=== PATIENT | male | born 1940 | race Caucasian/White ===

== ENCOUNTER → 2019-12-07 15:50 | Outpatient (BNVA) | payer MEDICARE, SELFPAY | PROVIDERS: Family Provider Family Medicine; PCP Family Medicine; Visit Provider Internal Medicine Rheumatology | DX: M06.09 Rheumatoid arthritis without rheumatoid factor, multiple sites (principal); Z11.59 Encounter for screening for other viral diseases; Z79.899 Other long term (current) drug therapy; Z11.1 Encounter for screening for respiratory tuberculosis; M79.89 Other specified soft tissue disorders; Z96.651 Presence of right artificial knee joint; Z72.89 Other problems related to lifestyle | CPT/HCPCS: 36415; 80076; 82565; 85025; 85651; 86140; 86480; 86704; 86803; 87340; 99214 ==

== ENCOUNTER → 2019-12-07 17:26 | Outpatient (BNVA) | payer MEDICARE, SELFPAY | PROVIDERS: Family Provider Family Medicine; PCP Family Medicine; Visit Provider Internal Medicine Rheumatology | DX: M06.9 Rheumatoid arthritis, unspecified (principal); Z79.899 Other long term (current) drug therapy; M79.89 Other specified soft tissue disorders | CPT/HCPCS: 85025 ==

== ENCOUNTER 2019-12-16 14:07 | Outpatient (CLI) | payer MEDICARE, SELFPAY ==
--- NOTE | 2019-12-16 13:30 | USCV_ITS ---
Ivan Ortiz Age: 79 Gender: M : 1940 Exam Date: 12/16/2019 14:40 Ordering Phys: Bang Dobbins MD Technologist: Kimberley Banerjee Exam Location: [facility] [place] Indication: PITTING EDEMA. R/O DVT. HISTORY: Lower extremity edema. PROCEDURES: Examined were the right greater saphenous, common femoral, femoral, profunda, popliteal, posterior tibial veins, and peroneal trunk.. FINDINGS: All veins examined appear free of thrombus. No filling defects on color Doppler flow analysis. Vein flow and caliber vary with respiration. Increase in venous flow with augmentation. All veins appear compressible.. CONCLUSIONS No evidence of right lower extremity DVT. Rangel Coleman MD (Electronically Signed) Final Date: 16 December 2019 15:55 S
== END 2019-12-16 14:08 | disposition home or self-care (01) ==
LOC: RAD 14:12
PROVIDERS: Family Provider Family Medicine; PCP Family Medicine; Visit Provider Internal Medicine Rheumatology
DX: M79.89 Other specified soft tissue disorders (principal); R60.9 Edema, unspecified
CPT/HCPCS: 93971

== ENCOUNTER → 2020-04-04 12:05 | Outpatient (BNVA) | payer MEDICARE, SELFPAY | PROVIDERS: Family Provider Family Medicine; PCP Family Medicine; Visit Provider Internal Medicine Rheumatology | DX: M06.09 Rheumatoid arthritis without rheumatoid factor, multiple sites (principal); Z79.899 Other long term (current) drug therapy; Z96.651 Presence of right artificial knee joint | CPT/HCPCS: 36415; 80061; 80076; 82565; 85025; 85651; 86140; 99214 ==

== ENCOUNTER 2020-05-10 03:50 | Observation (INO) | payer MEDICARE, SELFPAY ==
[2020-05-10] VITALS (10 sets, daily range): BP systolic 105–137; BP diastolic 53–75; PULSE 76–109; RESP 16–21; TEMP 36.6–37.2; O2SAT 92–95; BMI 29.0
--- NOTE | 2020-05-10 03:54 | XR_ITS ---
WS: [id number] PORTABLE CHEST HISTORY: Transient chest pain with nausea. COMPARISON: None available. Lung volumes are decreased. No pneumonia. Normal vasculature. No pleural effusion or pneumothorax. Cardiac size: Normal. Mediastinum/Aorta: Mild atherosclerosis aorta. Mild degenerative arthritic changes at the glenohumeral joints. XR/XR chest 1V portable [id number] IMPRESSION: Mild atherosclerosis aorta. No acute cardiopulmonary disease.
--- NOTE | 2020-05-10 03:54 | ECG_ITS ---
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 Measurements Intervals [place] Rate: 105 P: 40 [place]: 171 QRS: 166 QRSD: 131 T: 22 QT: 323 QTc: 428 Interpretive Statements SINUS TACHYCARDIA POSSIBLE LEFT ATRIAL ENLARGEMENT [-0.1mV P WAVE IN V1/V2] INDETERMINATE AXIS RIGHT BUNDLE BRANCH BLOCK [120+ ms QRS DURATION, UPRIGHT V1, 40+ ms S IN I/aVL/V4/V5/V6] LEFT POSTERIOR FASCICULAR BLOCK [QRS AXIS > 109, INFERIOR Q] No previous ECG available for comparison Electronically Signed On 05-10-2020 17:06:53 CDT by Renny Delarosa M.D. [email or web address] [id number]
--- NOTE | 2020-05-10 03:55 | W.ED.CHESTPA ---
HPI - Chest Pain General: Chief Complaint: Chest Pain Stated Complaint: CP Time Seen by Provider: 05/10/20 03:51 Source: patient and EMS Mode of arrival: EMS Limitations: no limitations History of Present Illness: HPI narrative: 79-year-old male who states he started having chest pain couple hours ago. Patient brought in by EMS and they state when they arrived his pain was an 8 out of 10 and is currently pain-free after aspirin and nitro. Patient states he had nausea with the pain as well. He denies any shortness of breath. He denies any vomiting. Again patient is pain-free at this time. complaint: chest pain Onset (ago): hour(s) Timing of current episode: episodic Pain location: substernal Pain radiation: none Severity: moderate Quality: tightness Relieving factors: nothing Exacerbating factors: nothing Associated symptoms: Deny abdominal pain, dyspnea, fever(s), nausea or vomiting Review of Systems Const: Denies: fever(s), chills, body aches or change in appetite Eyes: Denies: blurry vision or eye discomfort ENMT: Denies: throat pain or dental pain Card: Reports: chest pain Resp: Denies: dyspnea GI: Denies: abdominal pain, nausea, vomiting or diarrhea : Denies: dysuria Musc: Denies: neck pain or back pain Skin/Breast: Denies: rash Neuro: Denies: headache(s) Psych: Denies: depression Hammad/Lymph: Denies: easy bruising All/Imm: Denies: urticaria PFSH ED PFSH: Medical History Abnormal PSA Basal cell carcinoma REMOVED FROM NOSE AND FOREHEAD BPH NOS w ur obs/LUTS Erectile dysfunction High risk medication use Immunization counseling 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 Renal calculus, left Rheumatoid arthritis without rheumatoid factor, multiple sites Right leg swelling Ureteral calculus Surgical History History of total right knee replacement (TKR) Hx of cholecystectomy Family History Other Cancer Social History Smoking and tobacco status: former smoker Alcohol intake: never Adopted: No Caregiver/support person: No Lives independently: No Household members: spouse Marital status: Current occupational status: retired Physical Exam Const: COMMON NORMALS: no acute distress, patient oriented x3 and healthy appearing HENMT: COMMON NORMALS: normocephalic and atraumatic HEAD & SCALP: normocephalic and atraumatic Eye: COMMON NORMALS: Equal, round and reactive pupils present and EOMs intact bilaterally PUPIL: Yes Equal, round and reactive pupils present Neck/C-Spine: COMMON NORMALS: full ROM and supple Chest: COMMONS NORMALS: normal inspection of the chest and normal palpation of entire chest wall Resp: COMMON NORMALS: normal respiratory effort, No retractions, No use of accessory muscles and clear to auscultation bilaterally AUSCULTATION: clear to auscultation bilaterally Cardio: COMMON NORMALS: regular rate, regular rhythm and No murmurs present (Cardio) RATE: regular rate RHYTHM: regular rhythm GI: COMMON NORMALS: Normal to inspection, nondistended, normoactive bowel sounds present, Soft to palpation, non-tender and no masses PALPATION: Yes Soft to palpation Extremity: COMMON NORMALS: normal to inspection and full ROM Neuro: COMMON NORMALS: patient oriented x3, moves all extremities and no focal motor deficits Psych: COMMON NORMALS: mental status grossly normal, Normal thought process present and cooperative THOUGHT PROCESS: Normal thought process present Skin: COMMON NORMALS: no rashes or lesions noted and no wounds GENERAL SKIN EXAM: no rashes or lesions noted Course Vital Signs: Vital signs: Vital Signs Temperature 97.8 F 05/10/20 03:53 Pulse Rate 109 H 05/10/20 04:17 Respiratory Rate 21 H 05/10/20 04:17 Blood Pressure 122/71 05/10/20 04:17 Pulse Oximetry 93 05/10/20 04:17 MDM - Chest Pain MDM Narrative: Medical decision making narrative: Ivan presents here with chest pain that is since been resolved with nitro. Patient's initial EKG and troponin here are negative. He has multiple risk factors and I spoke to hospitalist and will admit for ACS rule out. Patient has no abdominal pain or tenderness and no signs of pulmonary embolism. Lab Data: Labs: Lab Results 05/10/20 05/10/20 05/10/20 Range/Units 03:25 03:25 03:25 WBC 8.0 (4.0-10.0) 10^3/ uL RBC 5.07 (4.1-5.3) 10^6/u L Hgb 15.3 (11.7-16.6) g/dL Hct 46.8 (42.0-52.0) % MCV 92.3 (80-94) fL MCH 30.2 (28.0-34.0) pg MCHC 32.7 (30.0-36.0) g/dL RDW 15.4 H (12.1-15.1) % Plt Count 216 (130-400) 10^3/c mm MPV 10.2 (7.4-10.4) fL Neut % (Auto) 93.1 % Lymph % (Auto) 5.0 % Guthrie % (Auto) 0.7 % Eos % (Auto) 0.4 % Baso % (Auto) 0.2 % Neut # (Auto) 7.45 (1.8-7.7) 10^3/u L Lymph # (Auto) 0.4 L (0.8-4.8) 10^3/u L Guthrie # (Auto) 0.1 L (0.2-0.9) 10^3/u L Eos # (Auto) 0.0 (0.0-0.8) 10^3/u L Baso # (Auto) 0.0 (0.0-0.1) 10^3/u L Nucleated RBC % (a uto) 0 % Nucleated RBCs # 0.0 /100WBC Sodium 135 L (136-145) mmol/L Potassium 3.8 (3.5-5.1) mmol/L Chloride 102 (98-107) mmol/L Carbon Dioxide 19 L (22-29) mmol/L Anion Gap 17.8 (5-19) BUN 14 (8-23) mg/dL Creatinine 1.0 (0.7-1.2) mg/dL GFR Calculation Not Reportable Glucose 170 H (65-115) mg/dL Calculated Osmolal ity 280 L (285-295) mOsm/k g Calcium 9.4 (8.5-10.5) mg/dL Total Bilirubin 0.6 (0.15-1.2) mg/dL AST 17 (0-40) U/L ALT 15 (0-41) U/L Alkaline Phosphata se 92 (40-130) IU/L Troponin T Baselin e 12 (0-15) ng/L Total Protein 6.8 (6.6-8.7) g/dL Albumin 4.5 (3.5-5.2) g/dL Globulin 2.3 (1.3-4.6) g/dL Lipase 43 (13-60) U/L Imaging Data^: CXR: Attestation: I personally reviewed and interpreted this imaging study as follows: My impression: no acute abnormality EKG Data^: EKG 1: Attestation: I personally reviewed and interpreted this EKG as follows: EKG interpretation date: 05/10/20 EKG interpretation time: 04:25 Interpretation: sinus tach hr [address] or t wave abnormalities rbbb qrs 131 qtc 384 Discharge Plan Discharge Patient Disposition: Admitted As Inpatient Clinical Impression: Chest pain Qualifiers: Chest pain type: unspecified Qualified Code(s): R07.9 - Chest pain, unspecified Condition: Stable Referrals: Kim Smith DO [Primary Care Provider] - Coding Level of Care Code ED 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
[2020-05-10 04:15] LABS: Basophils % 0.2 %; Eosinophils % 0.4 %; Hematocrit 46.8 % (42.0-52.0); Hemoglobin 15.3 g/dL (11.7-16.6); Lymphocytes # 0.4 10^3/uL (0.8-4.8); Mean Corpuscular HGB Conc 32.7 g/dL (30.0-36.0); Mean Corpuscular Hemoglobin 30.2 pg (28.0-34.0); Mean Corpuscular Volume 92.3 fL (80-94); Mean Platelet Volume 10.2 fL (7.4-10.4); Monocytes # 0.1 10^3/uL (0.2-0.9); Monocytes % 0.7 %; Neutrophils # 7.45 10^3/uL (1.8-7.7); Neutrophils % 93.1 %; Nucleated Red Blood Cells % 0 %; Platelet Count 216 10^3/cmm (130-400); Red Blood Count 5.07 10^6/uL (4.1-5.3); Red Cell Distribution Width 15.4 % (12.1-15.1)
[2020-05-10 04:34] LABS: Alanine Aminotransferase 15 U/L (0-41); Albumin Level 4.5 g/dL (3.5-5.2); Alkaline Phosphatase 92 IU/L (40-130); Anion Gap 17.8 (5-19); Aspartate Amino Transferase 17 U/L (0-40); Blood Urea Nitrogen 14 mg/dL (8-23); Calcium 9.4 mg/dL (8.5-10.5); Carbon Dioxide 19 mmol/L (22-29); Chloride 102 mmol/L (98-107); Globulin 2.3 g/dL (1.3-4.6); Glucose 170 mg/dL (65-115); Lipase 43 U/L (13-60); Osmolality Calculated 280 mOsm/kg (285-295); Potassium 3.8 mmol/L (3.5-5.1); Sodium 135 mmol/L (136-145); Total Bilirubin 0.6 mg/dL (0.15-1.2); Total Protein 6.8 g/dL (6.6-8.7)
[2020-05-10 04:37] LABS: Troponin(5th) Baseline 12 ng/L (0-15)
--- NOTE | 2020-05-10 05:13 | PM.HP ---
Providers/Chief Complaint Primary Care Provider: Kim Smith DO Chief Complaint: CP History of Present Illness Ivan Ortiz is a 79 year old male who has history of rheumatoid arthritis came in with chief complaint of epigastric discomfort. Patient is stating last night he was at rest when he started experiencing epigastric discomfort which he described as heartburn, this discomfort was radiating towards his right side of his neck, he started shaking really bad, he would not call it chest pain, he denies previous history of VA CHF or coronary artery disease. His discomfort lasted until he arrived in the ED and got sublingual nitroglycerin. Patient is independent for his daily activities, does not smoke or drink alcohol. His last bowel movement was yesterday which was regular, he is denying vomiting and is endorsing nausea. He is denying orthopnea, PND, fever, shortness of breath, cough recent sick contacts. Diagnosis in the ER revealed normal hemodynamics, EKG unremarkable, troponin without significant delta, Stress test has been postponed to tomorrow because he had drunk soda with caffeine last night D-dimer was requested which came back high, CTA was requested At the time of my evaluation normal hemodynamics, chest pain free Review of Systems Const: Denies: fever(s), chills, body aches, fatigue or malaise Eyes: Denies: change in vision ENMT: Denies: throat pain Card: Denies: chest pain, edema, swelling of feet/ankles, dyspnea on exertion or orthopnea Resp: Denies: dyspnea GI: Reports: abdominal pain and nausea; Denies: vomiting, diarrhea or constipation : Denies: flank pain Musc: Reports: neck pain Skin/Breast: Denies: rash Neuro: Denies: headache(s) Psych: Denies: anxiety Endo: Denies: polyuria Hammad/Lymph: Denies: easy bruising All/Imm: Denies: urticaria Medications/Allergies Home Medications Medication Instructions Recorded Confirmed Last Taken Type benazepril 20 mg tablet 20 mg PO DAILY 12/06/19 04/04/20 Unknown History hydrocodone 5 mg-acetaminophen 325 1 tab PO BID PRN 12/06/19 04/04/20 Unknown History mg tablet omeprazole 20 mg tablet,delayed 20 mg PO DAILY 12/06/19 04/04/20 Unknown History release dutasteride 0.5 mg capsule 0.5 mg PO DAILY #90 cap 03/04/20 06/17/20 Unknown Rx sildenafil 100 mg tablet See Rx Instructions .ROUTE 02/21/20 04/04/20 Unknown Rx .COMPLEX #20 tab folic acid 1 mg tablet 1 mg PO DAILY #90 tab 04/04/20 04/04/20 Unknown Rx methotrexate sodium 25 mg/mL 15 mg IM .Q7days #10 ml 04/09/20 Unknown Rx injection solution Allergies Allergy/AdvReac Type Severity Reaction Status Date / Time Penicillins Allergy Unknown Unknown Verified 04/04/20 12:10 aspirin AdvReac Unknown ADR-Nausea Verified 04/04/20 12:10 prednisone AdvReac Unknown Unknown Verified 04/04/20 12:10 PFSH Acute PFSH: Medical History Abnormal PSA Basal cell carcinoma REMOVED FROM NOSE AND FOREHEAD BPH NOS w ur obs/LUTS Erectile dysfunction High risk medication use Immunization counseling 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 Renal calculus, left Rheumatoid arthritis without rheumatoid factor, multiple sites Right leg swelling Ureteral calculus Surgical History History of total right knee replacement (TKR) Hx of cholecystectomy Family History Other Cancer Social History Smoking and tobacco status: former smoker Alcohol intake: never Adopted: No Caregiver/support person: No Lives independently: No Household members: spouse Marital status: Current occupational status: retired Vitals/I&O/Wt Last Vital Signs Temp 97.8 F 05/10/20 03:53 Pulse 92 05/10/20 05:05 Resp 19 H 05/10/20 05:05 BP 110/53 05/10/20 05:05 Pulse Ox 92 05/10/20 05:05 Weight last 48 hrs Weight 81.647 kg Physical Exam Narrative: EXAM NARRATIVE: Healthy looking elderly male Currently chest pain-free EOMI, PERRLA Abdomen soft nontender nondistended Hernandez's signs negative new bowel sound present Lungs are clear to auscultation Neurologically nonfocal deficit Lower extremity mild/trace edema otherwise no active ischemia gangrene ulcer Appropriate mood and affect No signs of dehydration S1, S2 no signs of tachycardia or heart failure Data : 05/10/20 03:25 05/10/20 03:25 A&P Assessment and plan (1) Atypical chest pain: Status: Acute (2) Right leg swelling: Status: Acute (3) Rheumatoid arthritis without rheumatoid factor, multiple sites: Status: Acute Additional A&P Information Atypical chest pain/epigastric discomfort Currently chest pain-free EKG without ischemic or infarctive change Troponin not significantly high Carries multiple risk factors of coronary disease such as hypertension, dyslipidemia, rheumatoid arthritis I would like to rule out coronary ischemia with Lexiscan stress test, Lexiscan stress test will be done tomorrow because he had caffeine last night Resume cardiac diet for now, n.p.o. after midnight GI cocktail x1 High d-dimer with trace edema of right lower extremity We will request CTA chest to rule out PE Rheumatoid arthritis: No active flare, holding methotrexate Continue folic acid Rectal dysfunction: Hold sildenafil Patient received multiple doses of nitroglycerin BPH: Continue dutasteride Full code Cardiac diet DVT prophylaxis Lovenox Attestations Medical Necessity Statement*: Anticipating discharge in less than 48 hours currently need Lexiscan stress test rule out coronary etiology for epigastric discomfort Time Spent in Patient Care: (>than 50% of time spent in counselling and/or direct pt care on unit). 40mins Coding Level of Care Code Acute Building Pressure Washer for Lacyg Brenda Diagnoses Atypical chest pain R07.89 Right leg swelling M79.89 Rheumatoid arthritis without rheumatoid factor, multiple sites M06.09
--- NOTE | 2020-05-10 05:15 | CT_ITS ---
WS: [id number] CT CHEST ANGIOGRAPHY WITH REFORMATS HISTORY: chest pain TECHNIQUE: Contiguous axial images are obtained through the chest during arterial injection of intrav enous contrast. Images are reconstructed to evaluate the pulmonary arteries. MIP imaging also reviewe d. All CT scans at [facility] use at least one of these dose optimization techniques: aut omated exposure control; mA and/or kV adjustment per patient size (includes targeted exams where dose is matched to clinical indication); or iterative reconstruction. CONTRAST: Omnipaque 350; 95 mL IV. DLP: 562.12 mGy.cm COMPARISON: None available. Very good opacification of the pulmonary arteries. No pulmonary embolism. Mild atherosclerosis with i ntimal thickening of the aorta. No aneurysm. No aortic dissection. Cardiac chambers are normal size. No pericardial or pleural effusions. There is minimal dependent change and mild groundglass attenuati on in the posterior RIGHT upper lobe. Normal vasculature. There are small mediastinal and hilar lymph nodes. Largest lymph node measures 9 mm at the RIGHT hilum. Prior cholecystectomy. No adrenal mass. No destructive bone lesions. CT/CT angio chest PE protcl [id number] IMPRESSION: 1. No pulmonary embolism. 2. Prior cholecystectomy. 3. Minimal atelectasis and focal area of pneumonitis in the posterior RIGHT up per lobe.
--- NOTE | 2020-05-10 05:48 | USCV_ITS ---
Ivan Ortiz Age: 79 Gender: M : 1940 Exam Date: 05/10/2020 14:20 Ordering Phys: Adrianne Short MD Technologist: Ramirez Stevens [place] [facility] [place]: SYNCOPE BP: 136 / 76 HR: 78 Rhythm: Sinus Technical Quality: Fair MEASUREMENTS (Male / Female) Normal Values 2D ECHO LV Diastolic Diameter PLAX 4.5 cm 4.2 - 5.9 / 3.9 - 5.3 cm LV Systolic Diameter PLAX 3.1 cm IVS Diastolic Thickness 1.1 cm 0.6 - 1.0 / 0.6 - 0.9 cm IVS Systolic Thickness 1.5 cm LVPW Diastolic Thickness 0.9 cm 0.6 - 1.0 / 0.6 - 0.9 cm LVPW Systolic Thickness 1.6 cm LVOT Diameter 2.0 cm LV Ejection Fraction 2D Teich 57.7 % LV Ejection Fraction MOD 2C 50.4 % LV Ejection Fraction 2C AL 52.6 % LA Diameter 4.2 cm LA Width 3.5 cm LA Height 4.1 cm RA Width 3.3 cm RA Height 4.3 cm Aorta at Sinotubular Diameter 3.5 cm M-MODE LV Diastolic Diameter MM 7.7 cm 4.2 - 5.9 / 3.9 - 5.3 cm LV Systolic Diameter MM 5.7 cm LV Ejection Fraction MM Teich 50.2 % IVS Diastolic Thickness MM 1.1 cm 0.6 - 1.0 / 0.6 - 0.9 cm IVS Systolic Thickness MM 1.5 cm LVPW Diastolic Thickness MM 1.2 cm 0.6 - 1.0 / 0.6 - 0.9 cm LVPW Systolic Thickness MM 1.8 cm RV Diastolic Diameter MM 2.8 cm Aortic Annulus Diameter 3.9 cm LA Ao Ratio MM 1.1 MV E Point Septal Separation 1.2 cm DOPPLER AV Peak Velocity 139.0 cm/s LVOT Peak Velocity 98.0 cm/s AV Area Cont Eq vti 2.0 cm squared AV Area Cont Eq pk 2.2 cm squared MV Area PHT 5.0 cm squared Mitral E to A Ratio 0.8 MV E' Velocity 10.0 cm/s Mitral E to MV E' Ratio 9.3 Mitral E to LV E' Lateral Ratio 8.4 Mitral E to LV E' Septal Ratio 10.4 TR Peak Velocity 116.0 cm/s TR Peak Gradient 5.4 mmHg TV Peak E Velocity 100.0 cm/s Right Atrial Pressure 3.0 mmHg Pulmonary Artery Systolic Pressu 8.4 mmHg PV Peak Velocity 101.0 cm/s FINDINGS Left Ventricle Normal left ventricular cavity size. Normal left ventricular systolic function. No regional wall motion abnormalities. Left ventricular ejection fraction is estimated at 55 %. Grade I/IV diastolic dysfunction (abnormal relaxation filling pattern), normal to mildly elevated filling pressures. Right Ventricle The right ventricle is normal in size and function. Right Atrium The right atrium is normal in size. Left Atrium The left atrium is normal in size. Mitral Valve Structurally normal mitral valve without significant stenosis or prolapse. There is no mitral regurgitation. Aortic Valve Moderate aortic valve calcification. No aortic valve stenosis. No aortic valve regurgitation. Tricuspid Valve Structurally normal tricuspid valve without significant stenosis or regurgitation. Pulmonary artery systolic pressure is normal. Pulmonic Valve Structurally normal pulmonic valve without significant stenosis. There is no pulmonic regurgitation. Pericardium Normal pericardium without effusion. Aorta Normal ascending aorta dimension. CONCLUSIONS 1-Normal left ventricular cavity size. Normal left ventricular systolic function. No regional wall motion abnormalities. Left ventricular ejection fraction is estimated at 55 %. Grade I/IV diastolic dysfunction (abnormal relaxation filling pattern), normal to mildly elevated filling pressures. 2-There is no pericardial effusion. 3-No significant valve abnormalities. 4-Pulmonary artery systolic pressure is within normal limits. 5-Right atrial pressure is around 5 mm of mercury. 6-There are no prior echocardiogram studies to compare. Adrianne Ruggiero MD (Electronically Signed) Final Date: 10 May 2020 20:03 S
[2020-05-10 06:02] LABS: D Dimer 1.14 ug/mIFEU (0-0.59)
[2020-05-10] MEDS: enoxaparin 40 mg/0.4 mL Syringe SUBCUT (06:11)
[2020-05-10 06:34] LABS: Troponin 5 2HR 14.34 ng/L (0-15); Troponin 5 2HR Delta 2.34 ABS# (0-10)
[2020-05-10] MEDS: iohexol 350 mg/mL 100 mL Btl IV (09:12)
[2020-05-10] MEDS: pantoprazole DR 40 mg Tablet PO (09:48)
[2020-05-10] MEDS: folic acid 1 mg Tablet PO (09:48)
--- NOTE | 2020-05-10 09:54 | ECG_ITS ---
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 Measurements Intervals [place] Rate: 74 P: 57 UT: 180 QRS: 51 QRSD: 134 T: 45 QT: 386 QTc: 430 Interpretive Statements SINUS RHYTHM POSSIBLE LEFT ATRIAL ENLARGEMENT [-0.1mV P WAVE IN V1/V2] INDETERMINATE AXIS RIGHT BUNDLE BRANCH BLOCK [120+ ms QRS DURATION, UPRIGHT V1, 40+ ms S IN I/aVL/V4/V5/V6] Compared to ECG 05/10/2020 04:25:25 Sinus tachycardia no longer present Left posterior fascicular block no longer present Electronically Signed On 05-10-2020 17:11:25 CDT by Renny Delarosa M.D. [email or web address]/[id number]
[2020-05-10] MEDS: lidocaine 2% viscous 15 ML, aluminum-mag hydrox-simethicon 30 ML, sucralfate oral liq 1 GM PO (10:02)
[2020-05-10 10:34] LABS: Troponin 5 6HR 11.35 ng/L (0-15)
--- NOTE | 2020-05-10 10:42 | PC.CHAP ---
Pastoral Care Encounter/Spiritual Assessment Type of Contact [] Declined senior validation engineer visit [] Patient/Family/Request visit [] Outpatient visit [] Follow-up visit [] Physician referral [] Code/Alert [x] Routine visit [] Staff referral [] Actively dying [] Patient sleeping [] Family support [] [] Out of room [] Palliative care [] [] Receiving care in room [] Pre-surgical visit [] Trauma [] Long length of stay [] ICU visit [] Other: Relational/Emotional Strength [x] Patient feels connected with others/family/visitors/staff [] Distress [] Loneliness/isolation [] Abandonment Spirituality of Patient [x] Person of Radha [x] Attends Alevism of their Radha [x] Believes in Prayer [x] Reads Bible or Oriental Orthodox materials [] There are Spiritual issues to be addressed Locker Room Supervisor Interventions [x] Prayer [x] Active listening [x] Non-anxious presence [x] Spiritual/emotional support [] Crisis/trauma care [] Spiritual counseling [] Bereavement support [] Provided bereavement packet [] Provided Bible/devotional materials [] Provided toy/stuffed animal, coloring book to patient or family member [] Provided Communion [] Anointing/[place] [] Salvation [x] Completed spiritual assessment [] Other: Impact on Illness or Injury [] Angry [] Fearful [] Anxious [] Often cries [] Exhaustion [] Unable to work [] Unable to attend yarsani [] Unable to walk/stand [] Unable to read [] Unable to drive [] Unable to eat/drink [] Unable to sleep [] Unable to be with family [] Patient intubated [x] Other: Summary Patient and his family are committed followers of [employer]. Patient specifically asked for pray for his son who is in the medical profession in [facility], who is currently hospitalized with the Covid-19 virus. Time spent with patient 10 minutes
[2020-05-10 10:47] LABS: Troponin 5 6HR Delta -0.65 ng/L (0-12)
--- NOTE | 2020-05-10 12:09 | P.PN_ITS ---
Subjective Subjective: Interval history: Chart reviewed, stress test postponed to tomorrow due to ingestion of caffeine earlier this morning. Hemodynamically stable, on room air, afebrile. Had 750 mL urine output overnight. CTA negative for PE. Noted pneumonitis in posterior right upper lobe. Resting in bed, no complaints. Medications: Reviewed: Yes Medication Review Details: Active Medications Generic Name Dose Route Start Last Admin Trade Name Freq PRN Reason Stop Dose Admin Enoxaparin Sodium 40 mg 05/10/20 06:15 05/10/20 06:11 Lovenox SUBCUT 40 mg Q24H JEM Administration Folic Acid 1 mg 05/10/20 09:00 05/10/20 09:48 Folic Acid PO 1 mg DAILY JEM Administration Pantoprazole Sodiu m 40 mg 05/10/20 09:00 05/10/20 09:48 Protonix PO 40 mg DAILY JEM Administration Penicillins Allergy (Unknown, Verified 04/04/20 12:10) Unknown aspirin Adverse Reaction (Unknown, Verified 04/04/20 12:10) ADR-Nausea prednisone Adverse Reaction (Unknown, Verified 04/04/20 12:10) Unknown Vitals/I&O/Wt Last Vital Signs Temp 98.5 F 05/10/20 11:21 Pulse 76 05/10/20 11:21 Resp 16 05/10/20 11:21 BP 105/66 05/10/20 11:21 Pulse Ox 92 05/10/20 11:21 05/09/20 05/10/20 05/10/20 22:59 06:59 14:59 Output Total 750 / 750 Balance -750 / -750 Weight last 48 hrs Weight 81.647 kg Physical Exam Const: COMMON NORMALS: no acute distress and patient oriented x3 GENERAL APPEARANCE: cooperative and comfortable ORIENTATION/CONSCIOUSNESS: Yes awake HENMT: COMMON NORMALS: normocephalic, atraumatic, hearing grossly normal bilaterally and moist oral mucous membranes HEAD & SCALP: normocephalic and atraumatic Eye: COMMON NORMALS: Equal, round and reactive pupils present, EOMs intact bilaterally and conjunctivae normal CONJUNCTIVA: Yes conjunctivae normal PUPIL: Yes Equal, round and reactive pupils present Neck/C-Spine: COMMON NORMALS: full ROM GENERAL: Yes normal visual inspection and Yes trachea midline Resp: COMMON NORMALS: normal respiratory effort, No retractions, No use of accessory muscles and clear to auscultation bilaterally EFFORT & INSPECTION: Yes able to speak in complete sentences, Yes symmetric chest movement and No tac hypneic AUSCULTATION: clear to auscultation bilaterally Cardio: COMMON NORMALS: regular rate, regular rhythm, S1 normal heart sound present, S2 normal heart sound present and No murmurs present (Cardio) RATE: regular rate RHYTHM: regular rhythm HEART SOUNDS: S1 normal heart sound present and S2 normal heart sound present GI: COMMON NORMALS: Normal to inspection, nondistended, normoactive bowel sounds present, Soft to palpation and non-tender PALPATION: Yes Soft to palpation Extremity: COMMON NORMALS: normal to inspection, full ROM and no clubbing, cyanosis or edema; negative for no pedal edema Neuro: COMMON NORMALS: patient oriented x3, moves all extremities, no focal motor deficits and no sensory deficits noted Psych: COMMON NORMALS: mental status grossly normal, Normal thought process present, cooperative, normal affect and speech normal SPEECH: Yes normal speech THOUGHT PROCESS: Normal thought process present Skin: COMMON NORMALS: no rashes or lesions noted, no jaundice, no petechiae and no mottling GENERAL SKIN EXAM: no rashes or lesions noted Data : 05/10/20 03:25 05/10/20 03:25 A&P Assessment and plan (1) Atypical chest pain: -need to r/o ACS -troponins noted, no significant delta -telemetry monitoring -serial ECGs with no acute ischemic changes noted -stress testing tomorrow, postponed as patient had caffeine earlier this AM. Keep NPO after midnight -D-dimer elevated, negative PE on CTA -noted pneumonitis on RUL; due to hx of RA and immunocompromise, will start on empiric antibiotics Status: Acute (2) Rheumatoid arthritis without rheumatoid factor, multiple sites: -follows up with Dr. Dobbins Status: Chronic Additional A&P Information -Erectile dysfunction; hold sildenafil -BPH; on dutasteride -cardiac diet as tolerated; NPO after midnight for stress testing -DVT ppx with lovenox -GI ppx with PPI -Dispo: home -Code status: DNI; ok with CPR if needed Attestations Medical Necessity Statement*: Patient requires hospitalization for continued management of atypical chest pain, pending nuclear stress testing tomorrow. Time Spent in Patient Care: Greater than 35 minutes (>than 50% of time spent in counselling and/or direct pt care on unit) . Coding Level of Care Code Acute Commissioned Defence Force Officer for Chg Fwd Exam Comprehensive Diagnoses Atypical chest pain R07.89 Rheumatoid arthritis without rheumatoid factor, multiple sites M06.09
[2020-05-10] MEDS: doxycycline 100 mg Tablet PO (18:06)
[2020-05-11 04:00] VITALS: BP 134/76; PULSE 84; RESP 17; TEMP 37; O2SAT 94
[2020-05-11 04:38] LABS: Basophils % 0.3 %; Eosinophils % 0.6 %; Hematocrit 43.2 % (42.0-52.0); Hemoglobin 14.2 g/dL (11.7-16.6); Lymphocytes # 0.6 10^3/uL (0.8-4.8); Mean Corpuscular HGB Conc 32.9 g/dL (30.0-36.0); Mean Corpuscular Hemoglobin 30.7 pg (28.0-34.0); Mean Corpuscular Volume 93.5 fL (80-94); Mean Platelet Volume 9.9 fL (7.4-10.4); Monocytes # 0.9 10^3/uL (0.2-0.9); Monocytes % 13.5 %; Neutrophils # 5.03 10^3/uL (1.8-7.7); Neutrophils % 76.4 %; Nucleated Red Blood Cells % 0 %; Platelet Count 163 10^3/cmm (130-400); Red Blood Count 4.62 10^6/uL (4.1-5.3); Red Cell Distribution Width 15.8 % (12.1-15.1); White Blood Count 6.6 10^3/uL (4.0-10.0)
[2020-05-11 04:50] LABS: Anion Gap 12.1 (5-19); Blood Urea Nitrogen 12 mg/dL (8-23); Calcium 8.2 mg/dL (8.5-10.5); Carbon Dioxide 24 mmol/L (22-29); Chloride 104 mmol/L (98-107); Glucose 123 mg/dL (65-115); Osmolality Calculated 279 mOsm/kg (285-295); Potassium 4.1 mmol/L (3.5-5.1); Sodium 136 mmol/L (136-145)
--- NOTE | 2020-05-11 05:48 | NMCV_ITS ---
NM trudy perf SPECT r/s* [id number] Ivan Ortiz Age: 79 Gender: M : 1940 Exam Date: 05/11/2020 09:36 Ordering Phys: Adrianne Short MD Technologist: ROD Pritchett Exam Location: [facility] Indications: Chest pain STRESS TEST Please see separate stress test report in [facility] for full findings IMAGE PROTOCOL Rest/Stress 1 Lexiscan Day Radiopharmaceutical Dose (mCi) Administration Site Administered by Rest: Tc-99m 10.7 IV Anais Jeffrey, PNEUMATIC TOOL REPAIRER Sestamibi Stress:Tc-99m 32.5 IV Anais Jeffrey, PNEUMATIC TOOL REPAIRER Sestamibi Rest: 11-May-2020 60 Discovery 630 Stress: 11-May-2020 45 Discovery 630 0.4mg Lexiscan. Supine position only as patient was unable to lay prone. SPECT RESULTS Technical Quality: Excellent Raw Data Analysis: Normal Image Corrections: No attenuation or motion correction applied Summed Stress Score: 3 Summed Rest Score: 8 Summed Difference Score: 0 PERFUSION FINDINGS Medium sized perfusion abnormality of mild severity of basal to mid inferior and basal to mid inferolateral wall on rest images with improved tracer uptake on inferior and inferolateral wall on supine stress images. This is suggestive of attenuation artifact. FUNCTIONAL RESULTS (calculated via Gated SPECT) Stress Image LV EF (%): 54 Stress EDV (mL):82 TID: 0.95 Stress ESV (mL):38 FUNCTIONAL FINDINGS: The left ventricle is normal in size. Transient Ischemia Dilatation of 0.95. There is normal left ventricular systolic function. The left ventricular ejection fraction is normal with a value of 54%. There is normal left ventricular wall thickening. Normal end-diastolic end-systolic volumes. IMPRESSIONS 1. Myocardial perfusion imaging is normal. Attenuation artifact noted in basal to mid inferior and inferolateral grimes. 2. Overall left ventricular systolic function is normal without regional wall motion abnormalities. 3. The left ventricular ejection fraction is normal with a value of 54%. 4. No coronary ischemia based on the study Brianda Yo MD (Electronically Signed) Final Date: 11 May 2020 12:25 S
[2020-05-11] MEDS: enoxaparin 40 mg/0.4 mL Syringe SUBCUT (05:52)
--- NOTE | 2020-05-11 06:00 | ECG_ITS ---
[facility] Test Date: 2020-05-11 Pat Name: Ivan Ortiz Department: Room: 279 Gender: Male [employer] Control: : 1940 Requested By: Adrianne Short Order Number: [id number] Alfredo MD: Brianda Yo M.D. Interpretive Statements NAME OF STUDY: LEXISCAN SESTAMIBI STRESS TEST INDICATION: Chest Pain PROCEDURE: At the baseline, the blood pressure was 112/61 mmHg, oxygen saturation 93% with a heart rate of 71 bpm. The electrocardiogram showed normal sinus rhythm, possible left atrial enlargement, right axis deviation and right bundle branch block. The Lexiscan was infused over a period of 20 seconds. A total of 0.4 milligrams of Lexiscan was infused. The stress phase was continued for a total of 5 minutes. Heart rate at the end of the stress phase was 88 bpm, oxygen saturation 91% with a blood pressure of 94/68 mmHg. The EKG at the peak infusion revealed sinus rhythm with no significant ST-T wave changes. The study was terminated due to protocol completion. Sestamibi was injected 20 seconds after the Lexiscan infusion. Blood pressure at the end of the recovery phase was 108/68 mmHg, oxygen saturation 91% with a heart rate of 86 beats per minute. CONCLUSION: 1. No significant EKG changes with the LexiScan infusion 2. No LexiScan induced chest pain or cardiac arrhythmia. 3. Normal blood pressure and heart rate response. 4. Sestamibi/sestamibi perfusion scan pending; see separate report. Electronically Signed On 05-13-2020 13:09:25 CDT by Brianda Yo M.D. [id number]
[2020-05-11 07:41] VITALS: BP 120/67; PULSE 65; RESP 18; TEMP 36.9; O2SAT 94
--- NOTE | 2020-05-11 10:01 | PC.CHAP ---
Pastoral Care Encounter/Spiritual Assessment Type of Contact [] Declined solar sales representative and assessor visit [] Patient/Family/Request visit [] Outpatient visit [] Follow-up visit [] Physician referral [] Code/Alert [x] Routine visit [] Staff referral [] Actively dying [] Patient sleeping [] Family support [] [] Out of room [] Palliative care [] [] Receiving care in room [] Pre-surgical visit [] Trauma [] Long length of stay [] ICU visit [] Other: Relational/Emotional Strength [] Patient feels connected with others/family/visitors/staff [] Distress [] Loneliness/isolation [] Abandonment Spirituality of Patient [] Person of Radha [] Attends Yazdanism of their Radha [] Believes in Prayer [] Reads Bible or Pentecostalism materials [] There are Spiritual issues to be addressed Door Installer Interventions [x] Prayer [x] Active listening [x] Non-anxious presence [x] Spiritual/emotional support [] Crisis/trauma care [] Spiritual counseling [] Bereavement support [] Provided bereavement packet [] Provided Bible/devotional materials [] Provided toy/stuffed animal, coloring book to patient or family member [] Provided Communion [] Anointing/Barker [] Salvation [x] Completed spiritual assessment [] Other: Impact on Illness or Injury [] Angry [] Fearful [] Anxious [] Often cries [] Exhaustion [] Unable to work [] Unable to attend jewish [] Unable to walk/stand [] Unable to read [] Unable to drive [] Unable to eat/drink [] Unable to sleep [] Unable to be with family [] Patient intubated [] Other: Summary Patient resting well Time spent with patient 5 min
--- NOTE | 2020-05-11 10:57 | SUR.PREOP ---
Patient reports no pain or discomfort prior to the start of the procedure.
[2020-05-11] MEDS: regadenoson 0.4 Mg/5 ml Syringe IVP (11:01)
[2020-05-11 11:15] VITALS: BP 108/68; PULSE 86
[2020-05-11 12:00] VITALS: BP 129/73; PULSE 79; RESP 18; TEMP 36.9; O2SAT 94
[2020-05-11] MEDS: doxycycline 100 mg Tablet PO (12:31)
[2020-05-11] MEDS: pantoprazole DR 40 mg Tablet PO (12:32)
[2020-05-11] MEDS: folic acid 1 mg Tablet PO (12:32)
--- NOTE | 2020-05-11 13:14 | PM.DCS ---
Discharge Providers Date of Admission: 05/10/20 04:51 Date of Discharge: May 11, 2020 Attending Provider at Admission: Adrianne Short MD Attending Provider at Discharge: Eloise Brennan MD Consults: None Primary Care Provider: Kim Smith DO Diagnoses at Discharge Discharge Diagnosis (1) Atypical chest pain: Status: Acute Problem details: -troponins noted, no significant delta -telemetry monitoring -serial ECGs with no acute ischemic changes noted -stress testing tomorrow, postponed as patient had caffeine earlier this AM. Keep NPO after midnight -D-dimer elevated, negative PE on CTA -noted pneumonitis on RUL; due to hx of RA and immunocompromise, will start on empiric antibiotics (2) Rheumatoid arthritis without rheumatoid factor, multiple sites: Status: Chronic Problem details: -follows up with Dr. Dobbins Other Information Additional DC diagnoses/information: -Erectile dysfunction; hold sildenafil -BPH; on dutasteride Reason for Visit Reason for Visit: CP Hospital Course Hospital Course: Patient was admitted to the medical surgical floor and placed on telemetry monitoring secondary to complaints of atypical chest pain. He had nuclear stress testing done which was initially postponed due to consumption of caffeine. He has been chest pain-free throughout his hospital stay, troponins trended with no significant delta noted, no acute ischemic changes noted on serial EKGs or telemetry. D-dimer was noted to be elevated on admission and CTA done which ruled out PE. He has been hemodynamically stable, ambulatory, afebrile. Nuclear stress testing is negative for any acute ischemia. He was noted to have some pneumonitis in the right upper lobe for which empiric doxycycline has been added. He has a documented allergy to aspirin so this was not given during his hospital stay, he is to be continued on his oral antihypertensive regimen and I have added a statin secondary to dyslipidemia per lipid panel. He will need to follow-up with his primary care provider within 1 week. He is counseled on need to seek medical attention immediately should any of his symptoms return. He will need to continue to follow-up with rheumatology as well secondary to his history of rheumatoid arthritis. Discharge Summary: -Patient to follow-up with primary care provider within 1 week Physical Exam Const: COMMON NORMALS: no acute distress and patient oriented x3 GENERAL APPEARANCE: cooperative and comfortable ORIENTATION/CONSCIOUSNESS: Yes awake HENMT: COMMON NORMALS: normocephalic, atraumatic, hearing grossly normal bilaterally and moist oral mucous membranes HEAD & SCALP: normocephalic and atraumatic Eye: COMMON NORMALS: Equal, round and reactive pupils present, EOMs intact bilaterally and conjunctivae normal CONJUNCTIVA: Yes conjunctivae normal PUPIL: Yes Equal, round and reactive pupils present Neck/C-Spine: COMMON NORMALS: full ROM GENERAL: Yes normal visual inspection and Yes trachea midline Resp: COMMON NORMALS: normal respiratory effort, No retractions, No use of accessory muscles and clear to auscultation bilaterally EFFORT & INSPECTION: Yes able to speak in complete sentences, Yes symmetric chest movement and No tachypneic AUSCULTATION: clear to auscultation bilaterally Cardio: COMMON NORMALS: regular rate, regular rhythm, S1 normal heart sound present, S2 normal heart sound present and No murmurs present (Cardio) RATE: regular rate RHYTHM: regular rhythm HEART SOUNDS: S1 normal heart sound present and S2 normal heart sound present GI: COMMON NORMALS: Normal to inspection, nondistended, normoactive bowel sounds present, Soft to palpation and non-tender PALPATION: Yes Soft to palpation Extremity: COMMON NORMALS: normal to inspection, full ROM and no clubbing, cyanosis or edema; negative for no pedal edema Neuro: COMMON NORMALS: patient oriented x3, moves all extremities, no focal motor deficits and no sensory deficits noted Psych: COMMON NORMALS: mental status grossly normal, Normal thought process present, cooperative, normal affect and speech normal SPEECH: Yes normal speech THOUGHT PROCESS: Normal thought process present Skin: COMMON NORMALS: no rashes or lesions noted, no jaundice, no petechiae and no mottling GENERAL SKIN EXAM: no rashes or lesions noted Discharge Data Data Completed and Pending: Completed Studies During Hospitalization Category Date Time Status CT angio chest PE protcl [id number] Stat Cat Scan 05/10/20 05:15 Completed Sestamibi Stress Test Request Routi ne Exams 05/11/20 06:00 Draft XR chest 1V arin ble [id number] Stat Exams 05/10/20 03:54 Completed NM trudy perf SPECT r/s* [id number] Routin e Nuc Med 05/11/20 05:48 Completed CV echo complete* [id number] Routine Ultrasound 05/10/20 05:48 Completed Labs from last 24 hours 05/11/20 05/11/20 04:15 04:15 WBC 6.6 RBC 4.62 Hgb 14.2 Hct 43.2 MCV 93.5 MCH 30.7 MCHC 32.9 RDW 15.8 H Plt Count 163 MPV 9.9 Neut % (Auto) 76.4 Lymph % (Auto) 9.0 [place] % (Auto) 13.5 Eos % (Auto) 0.6 Baso % (Auto) 0.3 Neut # (Auto) 5.03 Lymph # (Auto) 0.6 L [place] # (Auto) 0.9 Eos # (Auto) 0.0 Baso # (Auto) 0.0 Nucleated RBC % (a uto) 0 Nucleated RBCs # 0.0 Sodium 136 Potassium 4.1 Chloride 104 Carbon Dioxide 24 Anion Gap 12.1 BUN 12 Creatinine 1.1 GFR Calculation Not Reportable Glucose 123 H Calculated Osmolal ity 279 L Calcium 8.2 L Vitals: Last Vital Signs Temp 98.4 F 05/11/20 12:00 Pulse 79 05/11/20 12:00 Resp 18 05/11/20 12:00 BP 129/73 05/11/20 12:00 Pulse Ox 94 05/11/20 12:00 Discharge Plan Discharge Patient Disposition: Home Condition: Stable Prescriptions: New doxycycline monohydrate 100 mg Tablet 100 mg PO BID 7 Days Qty: 14 RF: 0 atorvastatin 40 mg tablet 40 mg PO QPM Qty: 30 RF: 0 Continued folic acid 1 mg tablet 1 mg PO DAILY Qty: 90 RF: 3 sildenafil 100 mg tablet See Rx Instructions .ROUTE .COMPLEX Qty: 20 RF: 6 benazepril 20 mg tablet 20 mg PO DAILY RF: 0 omeprazole 20 mg tablet,delayed release (DR/EC) 20 mg PO DAILY RF: 0 hydrocodone-acetaminophen 5-325 mg tablet 1 tab PO BID PRNRF: 0 dutasteride [Avodart] 0.5 mg capsule 0.5 mg PO DAILY Qty: 90 RF: 3 methotrexate sodium 25 mg/mL solution 15 mg IM .Q7days Qty: 10 RF: 1 Discharge Orders: Discharge Order (Routine); Ordered 05/11/20 Ordered By: Eloise Brennan Referrals: Kim Smith DO [Primary Care Provider] - 05/17/20 10:45 am (Post hospital discharge follow-up. Nuclear stress testing done, negative. You have an appointment on May 17 at 10:45) Discharge Diet: Cardiac Discharge Activity: Resume usual activity and Increase activity as tolerated Patient Instructions: Doxycycline (By mouth), Atorvastatin (By mouth), Chest Pain (DC) Discharge Attestations Time Spent in Discharge Care*: greater than 30 min Specific Discharge Activities: Specific discharge activities: educating patient, discussing with case loader operator/social workers/dc planners, documenting/other paperwork and evaluating patient/reviewing data Status at Discharge: Cognitive status at discharge: cognitively intact, Behavioral status at discharge: cooperative and independent in ADL's, Functional status at discharge: independent ambulation Overall status at discharge: patient is back to baseline Quality Metrics Clinical Quality Measures During this hospital stay, did patient experience: None Coding Level of Care Code Acute Medical Appointment Clerk for Velvet Fwd Exam Comprehensive Diagnoses Atypical chest pain R07.89 Rheumatoid arthritis without rheumatoid factor, multiple sites M06.09
[2020-05-11 15:26] VITALS: BP 129/73; PULSE 79; RESP 18; TEMP 36.9; O2SAT 94
--- NOTE | 2020-05-11 16:44 | PC.RESP ---
PATIENT DOES NOT HAVE A QUALIFYING HX OF LUNG DISEASE AND DOES NOT QUALIFY FOR PULMONARY REHAB.
== END 2020-05-11 15:00 | disposition home or self-care (01) ==
LOC: ER 04:51 → MEDSURG 05:29
PROVIDERS: Emergency Medicine; Admitting Provider Internal Medicine; PCP Family Medicine; Visit Provider Family Medicine
DX: R07.89 Other chest pain (principal); M79.89 Other specified soft tissue disorders; M06.09 Rheumatoid arthritis without rheumatoid factor, multiple sites; Z79.891 Long term (current) use of opiate analgesic; N40.1 Benign prostatic hyperplasia with lower urinary tract symptoms; N13.8 Other obstructive and reflux uropathy; Z87.891 Personal history of nicotine dependence; Z66 Do not resuscitate
CPT/HCPCS: 12345; 36415; 71045; 71275; 78452; 80048; 80053; 83690; 84484; 85025; 85378; 93005; 93017; 93306; 96372; 99283; 99285; A9500; G0378; J1650; J2785; Q9967

== ENCOUNTER → 2020-10-31 14:45 | Outpatient (BNVA) | payer MEDICARE, SELFPAY | PROVIDERS: PCP Family Medicine; Visit Provider Internal Medicine Rheumatology | DX: M06.09 Rheumatoid arthritis without rheumatoid factor, multiple sites (principal); Z79.899 Other long term (current) drug therapy; M24.522 Contracture, left elbow; Z87.891 Personal history of nicotine dependence | CPT/HCPCS: 36415; 80076; 82565; 85025; 85651; 86140; 99213; 99214 ==

== ENCOUNTER → 2021-01-30 12:52 | Outpatient (BNVA) | payer MEDICARE, SELFPAY | PROVIDERS: PCP Family Medicine; Visit Provider Internal Medicine Rheumatology | DX: M06.9 Rheumatoid arthritis, unspecified (principal); Z79.899 Other long term (current) drug therapy | CPT/HCPCS: 36415; 80076; 82565; 85025; 86140 ==

== ENCOUNTER → 2021-04-16 09:26 | Outpatient (BNVA) | payer MEDICARE, SELFPAY | PROVIDERS: PCP Family Medicine; Visit Provider Internal Medicine Rheumatology | DX: Z79.899 Other long term (current) drug therapy (principal) | CPT/HCPCS: 36415; 80076; 82565; 85025; 86140 ==

== ENCOUNTER → 2021-05-01 08:42 | Outpatient (BNVA) | payer MEDICARE, SELFPAY | PROVIDERS: PCP Family Medicine; Visit Provider Internal Medicine Rheumatology | DX: M06.09 Rheumatoid arthritis without rheumatoid factor, multiple sites (principal); Z71.89 Other specified counseling; M21.222 Flexion deformity, left elbow; Z79.899 Other long term (current) drug therapy; Z87.891 Personal history of nicotine dependence; Z96.651 Presence of right artificial knee joint | CPT/HCPCS: 99214 ==

== ENCOUNTER 2021-05-29 09:04 | Outpatient (CLI) | payer MEDICARE, SELFPAY ==
--- NOTE | 2021-05-29 09:15 | XR_ITS ---
WS: [id number] KUB, AP view, 05/29/2021 Clinical Data: URETERAL CALCULUS Comparison: KUB, 11/08/2018. Findings: There is a 0.6 cm calcification overlying the inferior pole of the left kidney. Colon gas obscures de tail over the right kidney. The true pelvis is not remarkable. There are clips in the right upper quadrant from a cholecystectomy. 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 XR/XR KUB [id number] Impression: No change in left renal calculus.
== END 2021-05-29 09:05 | disposition home or self-care (01) ==
LOC: RAD 09:10
PROVIDERS: PCP Family Medicine; Visit Provider Urology
DX: N20.1 Calculus of ureter (principal)
CPT/HCPCS: 74018; 81003

== ENCOUNTER → 2021-08-07 08:53 | Outpatient (BNVA) | payer MEDICARE, SELFPAY | PROVIDERS: PCP Family Medicine; Visit Provider Internal Medicine Rheumatology | DX: Z79.899 Other long term (current) drug therapy (principal); M06.09 Rheumatoid arthritis without rheumatoid factor, multiple sites | CPT/HCPCS: 36415; 80076; 82565; 85025; 86140 ==

== ENCOUNTER → 2021-10-23 09:30 | Outpatient (BNVA) | payer MEDICARE, SELFPAY | PROVIDERS: PCP Family Medicine; Visit Provider Internal Medicine Rheumatology | DX: M06.09 Rheumatoid arthritis without rheumatoid factor, multiple sites (principal); Z79.899 Other long term (current) drug therapy; M79.89 Other specified soft tissue disorders; M21.222 Flexion deformity, left elbow; T14.90XS Injury, unspecified, sequela; X58.XXXS Exposure to other specified factors, sequela; Z96.651 Presence of right artificial knee joint; Z71.89 Other specified counseling; Z87.891 Personal history of nicotine dependence | CPT/HCPCS: 99214 ==

== ENCOUNTER 2021-12-09 08:46 | Outpatient (CLI) | payer MEDICARE, SELFPAY ==
[2021-12-09 09:17] LABS: Basophils % 0.2 %; Eosinophils # 0.1 10^3/uL (0.0-0.8); Eosinophils % 2.2 %; Hematocrit 47.2 % (42.0-52.0); Hemoglobin 15.5 g/dL (11.7-16.6); Lymphocytes # 1.1 10^3/uL (0.8-4.8); Lymphocytes % 26.3 %; Mean Corpuscular HGB Conc 32.8 g/dL (30.0-36.0); Mean Corpuscular Hemoglobin 30.3 pg (28.0-34.0); Mean Corpuscular Volume 92.4 fl (80-94); Mean Platelet Volume 9.4 fL (7.4-10.4); Monocytes # 0.3 10^3/uL (0.2-0.9); Monocytes % 6.9 %; Neutrophils # 2.58 10^3/uL (1.8-7.7); Neutrophils % 64.2 %; Nucleated Red Blood Cells % 0 %; Platelet Count 259 10^3/cmm (130-400); Red Blood Count 5.11 10^6/uL (4.1-5.3); Red Cell Distribution Width 15.4 % (12.1-15.1)
[2021-12-09 09:57] LABS: Alanine Aminotransferase 33 U/L (0-41); Albumin Level 4.2 g/dL (3.5-5.2); Alkaline Phosphatase 98 IU/L (40-130); Aspartate Amino Transferase 34 U/L (0-40); Globulin 3.1 g/dL (1.3-4.6); Total Bilirubin 0.3 mg/dL (0.15-1.2); Total Protein 7.3 g/dL (6.6-8.7)
== END 2021-12-09 08:47 | disposition home or self-care (01) ==
PROVIDERS: PCP Family Medicine; Visit Provider Internal Medicine Rheumatology
DX: M06.09 Rheumatoid arthritis without rheumatoid factor, multiple sites (principal); Z79.899 Other long term (current) drug therapy
CPT/HCPCS: 36415; 80076; 82565; 85025; 86140

== ENCOUNTER 2022-01-20 14:48 | Outpatient (CLI) | payer MEDICARE, SELFPAY ==
[2022-01-20 15:35] LABS: Basophils % 0.3 %; Eosinophils % 0.6 %; Hematocrit 47.7 % (42.0-52.0); Hemoglobin 15.7 g/dL (11.7-16.6); Lymphocytes # 1.4 10^3/uL (0.8-4.8); Lymphocytes % 21.7 %; Mean Corpuscular HGB Conc 32.9 g/dL (30.0-36.0); Mean Corpuscular Hemoglobin 30.3 pg (28.0-34.0); Mean Corpuscular Volume 92.1 fl (80-94); Monocytes # 0.3 10^3/uL (0.2-0.9); Neutrophils # 4.49 10^3/uL (1.8-7.7); Neutrophils % 72.1 %; Nucleated Red Blood Cells % 0 %; Platelet Count 233 10^3/cmm (130-400); Red Blood Count 5.18 10^6/uL (4.1-5.3); Red Cell Distribution Width 15.5 % (12.1-15.1); White Blood Count 6.2 10^3/uL (4.0-10.0)
[2022-01-20 15:41] LABS: Alanine Aminotransferase 18 U/L (0-41); Albumin Level 4.3 g/dL (3.5-5.2); Alkaline Phosphatase 104 IU/L (40-130); Aspartate Amino Transferase 24 U/L (0-40); Globulin 2.6 g/dL (1.3-4.6); Total Bilirubin 0.7 mg/dL (0.15-1.2); Total Protein 6.9 g/dL (6.6-8.7)
== END 2022-01-20 14:49 | disposition home or self-care (01) ==
LOC: LAB 14:50
PROVIDERS: PCP Family Medicine; Visit Provider Internal Medicine Rheumatology
DX: M06.09 Rheumatoid arthritis without rheumatoid factor, multiple sites (principal); Z79.899 Other long term (current) drug therapy
CPT/HCPCS: 80076; 82565; 85025; 86140

== ENCOUNTER 2022-04-25 08:56 | Outpatient (CLI) | payer MEDICARE, SELFPAY ==
[2022-04-25 09:21] LABS: Basophils % 0.4 %; Eosinophils # 0.1 10^3/uL (0.0-0.8); Eosinophils % 2.6 %; Hematocrit 46.7 % (42.0-52.0); Lymphocytes # 1.4 10^3/uL (0.8-4.8); Lymphocytes % 26.6 %; Mean Corpuscular HGB Conc 34.3 g/dL (30.0-36.0); Mean Corpuscular Hemoglobin 30.4 pg (28.0-34.0); Mean Corpuscular Volume 88.8 fl (80-94); Mean Platelet Volume 9.8 fL (7.4-10.4); Monocytes # 0.6 10^3/uL (0.2-0.9); Monocytes % 12.6 %; Neutrophils # 2.93 10^3/uL (1.8-7.7); Neutrophils % 57.6 %; Nucleated Red Blood Cells % 0 %; Platelet Count 209 10^3/cmm (130-400); Red Blood Count 5.26 10^6/uL (4.1-5.3); Red Cell Distribution Width 14.9 % (12.1-15.1); White Blood Count 5.1 10^3/uL (4.0-10.0)
[2022-04-25 09:42] LABS: Alanine Aminotransferase 15 U/L (0-41); Albumin Level 4.3 g/dL (3.5-5.2); Alkaline Phosphatase 101 IU/L (40-130); Aspartate Amino Transferase 18 U/L (0-40); Globulin 2.9 g/dL (1.3-4.6); Total Bilirubin 0.3 mg/dL (0.15-1.2); Total Protein 7.2 g/dL (6.6-8.7)
== END 2022-04-25 08:57 | disposition home or self-care (01) ==
LOC: LAB 08:58
PROVIDERS: PCP Family Medicine; Visit Provider Internal Medicine Rheumatology
DX: M06.09 Rheumatoid arthritis without rheumatoid factor, multiple sites (principal); Z79.899 Other long term (current) drug therapy
CPT/HCPCS: 80076; 82565; 85025; 86140

== ENCOUNTER → 2022-04-30 10:05 | Outpatient (BNVA) | payer MEDICARE, SELFPAY | PROVIDERS: PCP Family Medicine; Visit Provider Internal Medicine Rheumatology | DX: M06.09 Rheumatoid arthritis without rheumatoid factor, multiple sites (principal); M79.89 Other specified soft tissue disorders; Z79.899 Other long term (current) drug therapy; M21.222 Flexion deformity, left elbow; Z96.651 Presence of right artificial knee joint; Z71.89 Other specified counseling | CPT/HCPCS: 93971; 99214 ==

== ENCOUNTER 2022-04-30 13:40 | Outpatient (CLI) | payer MEDICARE, SELFPAY ==
--- NOTE | 2022-04-30 13:30 | USCV_ITS ---
Ivan Ortiz Age: 81 Gender: M : 1940 Exam Date: 04/30/2022 14:19 Ordering Phys: Bang Dobbins MD Technologist: Americo Reed Exam Location: [facility] Indication: swelling of left lower extremity HISTORY: Recently dropped something heavy on lower leg and had to have stitches. PROCEDURES: Venous duplex imaging was performed in only the left lower extremity. The following venous structures were evaluated: common femoral vein, profunda vein, proximal portion of the greater saphenous vein, superficial femoral vein, and the popliteal vein. In addition, the posterior tibial and peroneal trunk were evaluated. Serial compression, augmentation maneuvers, and spectral Doppler flow evaluation were performed. FINDINGS: Normal 2-D Doppler and augmentation and compressibility throughout the lower extremity venous structures. Additional imaging through the proximal calf veins also reveals no thrombus. Limited evaluation of the greater saphenous vein is patent with no thrombus. CONCLUSIONS No DVT left lower extremity. Dr. Payal Cedillo DO (Electronically Signed) Final Date: 30 April 2022 16:05 S
== END 2022-04-30 13:41 | disposition home or self-care (01) ==
LOC: RAD 13:42
PROVIDERS: PCP Family Medicine; Visit Provider Internal Medicine Rheumatology
DX: M79.89 Other specified soft tissue disorders (principal)
CPT/HCPCS: 93971

== ENCOUNTER → 2022-07-03 09:59 | Outpatient (BNVA) | payer MEDICARE, SELFPAY | PROVIDERS: PCP Family Medicine; Visit Provider Physician Assistant | DX: M51.37 Other intervertebral disc degeneration, lumbosacral region (principal); M17.12 Unilateral primary osteoarthritis, left knee | CPT/HCPCS: 72110; 73560; 73565; 99203; 99204 ==

== ENCOUNTER → 2022-07-10 13:16 | Outpatient (BNVA) | payer MEDICARE, SELFPAY | PROVIDERS: PCP Family Medicine; Referring Provider Physician Assistant; Visit Provider Student in an Organized Health Care Education/Training Program | DX: M17.12 Unilateral primary osteoarthritis, left knee (principal) | CPT/HCPCS: 99203 ==

== ENCOUNTER 2022-07-23 08:14 | Outpatient (CLI) | payer MEDICARE, SELFPAY ==
--- NOTE | 2022-07-23 08:45 | MR_ITS ---
WS: [id number] MRI LUMBAR SPINE NONCONTRAST HISTORY: back pain COMPARISON: None available. TECHNIQUE: Sagittal and axial multisequence imaging is submitted. C5 retrolisthesis by 2 mm. Mild straightening of the normal lumbar lordosis. Marrow edema in the adjacent endplates of L3 and L4 . Fatty replacement of the marrow at L5-S1. Disc spaces are desiccated throughout. No significant loss of height at L3-4 and L5-S1. Conus terminates normally at L1-2 disc level. T12-L1: Mild LEFT foraminal narrowing due to facet joint arthritis and mild asymmetric disc bulging. L1-L2: Diffuse annular disc bulging with moderate RIGHT foraminal disc protrusion. Smaller disc protr usion in the RIGHT foramen. Moderate bilateral facet joint arthritis and ligamentum flavum arthritis. Mild central and foraminal stenosis. Disc protrusions contacting the LEFT traversing L2 nerve root. L2-L3: Mild disc bulging. LEFT foraminal disc protrusion causing moderate stenosis. L3-L4: Diffuse osteophytic ridging and annular disc bulging with ligamentum flavum hypertrophy and fa cet arthritis. Moderate central, bilateral subarticular recess and foraminal stenosis. Partially extr uded disc extends caudad into the RIGHT subarticular recess. L4-L5: Diffuse annular disc bulging and osteophytic ridging. Facet joint arthritis and ligamentum fla vum hypertrophy. Moderate central with bilateral subarticular recess and mild foraminal stenosis. The re is a very small RIGHT subarticular disc protrusion. L5-S1: Diffuse annular disc bulging slightly asymmetric to the LEFT. Mild osteophytic ridging. Mild c entral, bilateral subarticular recess and foraminal stenosis. Mild disc contact on the S1 nerve roots . Paravertebral soft tissues are negative. MR/MR lumbar spine wo con* [id number] IMPRESSION: 1. 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 2. Moderate central, bilateral subarticular recess and foraminal stenosis at L 3-4. Extruded disc extends caudad into the RIGHT subarticular recess. Most sign ificant contact on the L4 nerve root. 3. Mild central and foraminal stenosis at L1-2 with disc protrusion contacting the LEFT traversing nerve root. 4. Mild central, bilateral subarticular recess and foraminal stenosis L5-S1 wi th disc contacting the S1 nerve roots. 5. Moderate central and bilateral subarticular recess stenosis L4-5. Small RIG HT subarticular disc protrusion. 6. Moderate LEFT foraminal stenosis at L2-3.
== END 2022-07-23 08:15 | disposition home or self-care (01) ==
PROVIDERS: PCP Family Medicine; Visit Provider Physician Assistant
DX: M54.9 Dorsalgia, unspecified (principal); M46.86 Other specified inflammatory spondylopathies, lumbar region; M48.061 Spinal stenosis, lumbar region without neurogenic claudication
CPT/HCPCS: 72148

== ENCOUNTER → 2022-08-12 11:43 | Outpatient (BNVA) | payer MEDICARE, SELFPAY | PROVIDERS: PCP Family Medicine; Visit Provider Physician Assistant | DX: M16.11 Unilateral primary osteoarthritis, right hip (principal); M51.37 Other intervertebral disc degeneration, lumbosacral region; M48.062 Spinal stenosis, lumbar region with neurogenic claudication | CPT/HCPCS: 73502; 99214 ==

== ENCOUNTER → 2022-09-22 13:39 | Outpatient (BNVA) | payer MEDICARE, SELFPAY | PROVIDERS: PCP Family Medicine; Visit Provider Urology | DX: N40.1 Benign prostatic hyperplasia with lower urinary tract symptoms (principal); N20.9 Urinary calculus, unspecified; N52.9 Male erectile dysfunction, unspecified | CPT/HCPCS: 51798; 81003; 99213 ==

== ENCOUNTER → 2022-11-04 10:32 | Outpatient (BNVA) | payer MEDICARE, SELFPAY | PROVIDERS: PCP Family Medicine; Visit Provider Internal Medicine Rheumatology | DX: M06.09 Rheumatoid arthritis without rheumatoid factor, multiple sites (principal); Z79.899 Other long term (current) drug therapy; Z71.89 Other specified counseling; M51.37 Other intervertebral disc degeneration, lumbosacral region | CPT/HCPCS: 36415; 80076; 82565; 85025; 86140; 99214 ==

== ENCOUNTER → 2023-02-02 11:07 | Outpatient (BNVA) | payer MEDICARE, SELFPAY | PROVIDERS: PCP Family Medicine; Visit Provider Internal Medicine Rheumatology | DX: M06.09 Rheumatoid arthritis without rheumatoid factor, multiple sites (principal); Z79.899 Other long term (current) drug therapy; Z71.89 Other specified counseling; M51.37 Other intervertebral disc degeneration, lumbosacral region | CPT/HCPCS: 36415; 80076; 82565; 85025; 86140; 99214 ==

== ENCOUNTER 2023-09-17 16:30 | Emergency (ER) | payer MEDICARE, SELFPAY ==
[2023-09-17] VITALS (7 sets, daily range): BP systolic 115–157; BP diastolic 66–102; PULSE 80–107; RESP 16–18; TEMP 37.1; O2SAT 89–94; BMI 30.7
--- NOTE | 2023-09-17 16:37 | XRR_ITS ---
PROCEDURE INFORMATION: Exam: XR Abdomen Exam date and time: 09/17/2023 5:01 PM Age: 83 years old Clinical indication: Abdominal pain; Additional info: Abd pain, constipation, urinary retention TECHNIQUE: Imaging protocol: Radiologic exam of the abdomen. Views: Frontal supine view of the abdomen. 1 View. COMPARISON: CR XR KUB [id number] 05/29/2021 9:22 AM FINDINGS: Gastrointestinal tract: Moderate colonic stool burden. No dilated loops of small bowel. Intraperitoneal space: No evidence of free air. Surgical clips in the right upper quadrant. Bones/joints: Sclerotic focus in the right inferior iliac bone, appears slightly increased in size compared to 2018 radiographs. Correlation with prior cross-sectional imaging, if available, would be helpful for further characterization. Osseous demineralization. Mild scoliotic curvature of the spine. Multilevel spondylosis. XR/XR KUB [id number] IMPRESSION: 1. No dilated loops of bowel. 2. Moderate colonic stool burden. 3. Sclerotic focus in the right inferior iliac bone, appears slightly increased in size compared to 2018 radiographs. Correlation with prior cross-sectional imaging, if available, would be helpful for further characterization.
--- NOTE | 2023-09-17 16:53 | ED_ITS ---
Documented by User: Yogesh Mccain DO 09/17/23 21:51 HPI - Abdominal Pain 2 General: Chief Complaint: Abdominal Pain Stated Complaint: abd pain Time Seen by Provider: 09/17/23 16:31 History of Present Illness: Patient presents to the ER with complaints of abdominal pain, urinary retention, constipation, all began about 3 hours ago. Patient was given 4 mg Zofran and 100 mcg of fentanyl on route by EMS. EMS stated that he became hypotensive after the medicine was given and then they administered a fluid bolus. Patient states he very rarely becomes constipated. Hardly ever has abdominal pain. But has a couple times in the past had urinary retention and required a Hall catheter. Patient is currently taking hydrocodone for chronic pain as well as dutasteride for BPH. 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 Social History Smoking and tobacco/nicotine status: former use of tobacco/nicotine Alcohol intake: never Adopted: No Caregiver/support person: No Lives independently: No Household members: spouse Marital status: Current occupational status: retired Physical Exam 2 Const: COMMON NORMALS: no acute distress, average body habitus, patient oriented x3, no limitations, healthy appearing, alert and well nourished HENMT: COMMON NORMALS: normocephalic, atraumatic, hearing grossly normal bilaterally, external ears normal, Normal external nose present, moist oral mucous membranes and oropharynx normal HEAD & SCALP: normocephalic and atraumatic NOSE: Normal external nose present EXTERNAL EAR: Yes external ears normal Neck/C-Spine: COMMON NORMALS: no JVD Chest: COMMONS NORMALS: normal inspection of the chest and normal palpation of entire chest wall Resp: COMMON NORMALS: normal respiratory effort, No retractions, No use of accessory muscles and clear to auscultation bilaterally AUSCULTATION: clear to auscultation bilaterally Cardio: COMMON NORMALS: no JVD, regular rate, regular rhythm, S1 normal heart sound present, S2 normal heart sound present, No gallops present (Cardio), No clicks present (Cardio), No murmurs present (Cardio) and No rub (Cardio) R ATE: regular rate RHYTHM: regular rhythm HEART SOUNDS: S1 normal heart sound present and S2 normal heart sound present GI: COMMON NORMALS: Soft to palpation, No hepatosplenomegaly present and no masses; negative for non-tender (Diffusely tender throughout) PALPATION: Yes Soft to palpation and Yes No hepatosplenomegaly present Neuro: COMMON NORMALS: patient oriented x3 SENSORIUM/ORIENTATION: Yes alert Course 2 Vital Signs: Vital signs: Vital Signs Temperature 98.8 F 09/17/23 16:35 Pulse Rate 104 H 09/17/23 22:27 Respiratory Rate 18 09/17/23 22:27 Blood Pressure 148/80 09/17/23 22:27 Pulse Oximetry 89 L 09/17/23 22:27 Oxygen Delivery Me thod Room Air 09/17/23 22:27 MDM - Abdominal Pain Medical Decision Making Patient presents to the ER with abdominal pain and acute urinary retention. Patient had a bladder scan and then a Hall inserted. Patient felt improvement with this alone. Patient was given Toradol 30 mg IV as well as 4 mg of morphine and 4 mg Zofran IV and patient's pain improved even more. Patient's lab work showed he had elevated white count at 18.9 and his urinalysis was negative. Otherwise it was unremarkable. Patient's x-ray read off is no dilated loops of bowel. But with moderate colonic stool burden. A CT scan was ordered due to the patient's elevated white count. Waiting on the CT scan patient had a large BM and said he felt even better. CT scan results are pending. Differential Diagnosis Likely abdominal pain and constipation; Unlikely acute appendicitis, calculus of kidney, diverticulitis, endometriosis, gastroenteritis, pancreatitis or small bowel obstruction Medical Records I reviewed the patient's medical records. Lab Data I reviewed the patient's lab results. 09/17/23 16:49 09/17/23 16:49 Labs/Radiology: Radiology Impressions KUB X-Ray 09/17/23 16:37 IMPRESSION: 1. No dilated loops of bowel. 2. Moderate colonic stool burden. 3. Sclerotic focus in the right inferior iliac bone, appears slightly increased in size compared to 2018 radiographs. Correlation with prior cross-sectional imaging, if available, would be helpful for further characterization. Abdomen/Pelvis CT 09/17/23 20:53 IMPRESSION: 1. There is pericolonic fluid/stranding about the distal sigmoid/proximal rectum. There is sigmoid diverticulosis slightly more proximally, but the pericolonic inflammatory change is slightly distal to this as above. Considerations include colitis versus diverticulitis. 2. Large volume of stool within the rectal vault, raises suspicion for impaction, correlate clinically. Laboratory Results WBC 18.93 10^3/uL (3.29-11.43) H 09/17/23 16:49 RBC 5.57 10^6/uL (3.85-5.65) 09/17/23 16:49 Hgb 16.40 g/dL (11.27-16.99) 09/17/23 16:49 Hct 53.1 % (37-53) H 09/17/23 16:49 MCV 95.3 fl (82-101) 09/17/23 16:49 MCH 29.4 pg (27-33) 09/17/23 16:49 MCHC 30.9 g/dL (30-55) 09/17/23 16:49 RDW 13.2 % (12.1-15.1) 09/17/23 16:49 Plt Count 220 10^3/cmm (157-399) 09/17/23 16:49 MPV 10.5 fL (7.4-10.4) H 09/17/23 16:49 Neut % (Auto) 86.2 % 09/17/23 16:49 Lymph % (Auto) 5.7 % 09/17/23 16:49 [place] % (Auto) 7.3 % 09/17/23 16:49 Eos % (Auto) 0.1 % 09/17/23 16:49 Baso % (Auto) 0.3 % 09/17/23 16:49 Neut # (Auto) 16.33 10^3/uL (1.8-7.7) H 09/17/23 16:49 Lymph # (Auto) 1.1 10^3/uL (0.8-4.8) 09/17/23 16:49 [place] # (Auto) 1.4 10^3/uL (0.2-0.9) H 09/17/23 16:49 Eos # (Auto) 0.0 10^3/uL (0.0-0.8) 09/17/23 16:49 Baso # (Auto) 0.1 10^3/uL (0.0-0.1) 09/17/23 16:49 Nucleated RBC % (auto) 0 % 09/17/23 16:49 Nucleated RBCs # 0.0 /100WBC 09/17/23 16:49 Sodium 138 mmol/L (136-145) 09/17/23 16:49 Potassium 4.4 mmol/L (3.5-5.1) 09/17/23 16:49 Chloride 106 mmol/L (98-107) 09/17/23 16:49 Carbon Dioxide 17 mmol/L (22-29) L 09/17/23 16:49 Anion Gap 19.4 (5-19) H 09/17/23 16:49 BUN 19 mg/dL (8-23) 09/17/23 16:49 Creatinine 1.1 mg/dL (0.7-1.2) 09/17/23 16:49 GFR Calculation Not Reportable 09/17/23 16:49 Glucose 103 mg/dL (65-115) 09/17/23 16:49 Calculated Osmolality 289 mOsm/kg (285-295) 09/17/23 16:49 Calcium 9.0 mg/dL (8.5-10.5) 09/17/23 16:49 Total Bilirubin 0.3 mg/dL (0.15-1.2) 09/17/23 16:49 AST 21 U/L (0-40) 09/17/23 16:49 ALT 16 U/L (0-41) 09/17/23 16:49 Alkaline Phosphatase 90 U/L (40-130) 09/17/23 16:49 Total Protein 7.1 g/dL (6.6-8.7) 09/17/23 16:49 Albumin 4.0 g/dL (3.5-5.2) 09/17/23 16:49 Globulin 3.1 g/dL (1.3-4.6) 09/17/23 16:49 Urine Color Dark yellow (Yellow) 09/17/23 17:34 Urine Appearance Clear (CLEAR) 09/17/23 17:34 Urine pH 5 (5-7) 09/17/23 17:34 Ur Specific [place] 1.025 (1.005-1.030) 09/17/23 17:34 Urine Protein Neg (Negative) 09/17/23 17:34 Urine Glucose (UA) Norm (Normal) 09/17/23 17:34 Urine Ketones Negative (Negative) 09/17/23 17:34 Urine Blood Neg (Negative) 09/17/23 17:34 Urine Nitrate Negative (Negative) 09/17/23 17:34 Urine Bilirubin Neg (Negative) 09/17/23 17:34 Urine Urobilinogen Norm mg/dL (Negative) 09/17/23 17:34 Ur Leukocyte Esterase Negative (Negative) 09/17/23 17:34 All radiology interpretation(s) finalized by discharge Discharge Plan Discharge Patient Disposition: Home Clinical Impression: Acute urinary retention, Diverticulitis Abdominal pain Qualifiers: Abdominal location: unspecified location Qualified Code(s): R10.9 - Unspecified abdominal pain Constipation Qualifiers: Constipation type: unspecified constipation type Qualified Code(s): K59.00 - Constipation, unspecified Condition: Stable Prescriptions: New Colace 100 mg capsule 200 mg PO BID PRN (Reason: constipation) Qty: 30 0RF Dulcolax (bisacodyl) 5 mg tablet,delayed release (DR/EC) 5 mg PO BID PRN (Reason: constipation) Qty: 30 0RF metronidazole 500 mg tablet 500 mg PO Q8H 7 Days Qty: 21 0RF Cipro 500 mg tablet 500 mg PO BID Qty: 14 0RF No Action prednisone 5 mg tablet See Rx Instructions PO .COMPLEX PRN (Reason: joint pain flare) Qty: 30 1RF Rx Instructions: take 1 or 2 tabs daily for 2-5 days prn joint pain flare PO PRN; diclofenac sodium 1 % gel 2 g topical QID Qty: 100 2RF Rx Instructions: apply to affected area as needed sildenafil 100 mg tablet See Rx Instructions .ROUTE .COMPLEX Qty: 20 6RF Rx Instructions: 1/2 TO 1 TAB 1 hour before intercourse, on empty stomach, NO NITROGLYCERIN benazepril 20 mg tablet 20 mg PO DAILY omeprazole 20 mg tablet,delayed release (DR/EC) 20 mg PO DAILY hydrocodone-acetaminophen 5-325 mg tablet 1 tab PO BID PRN folic acid 1 mg tablet 1 mg PO DAILY Qty: 90 3RF methotrexate sodium 25 mg/mL solution 15 mg IM .Q7days Qty: 10 1RF dutasteride 0.5 mg capsule See Rx Instructions .ROUTE .COMPLEX Qty: 90 3RF Dose Instruction: Take 1 capsule by mouth once daily Rx Instructions: Take 1 capsule by mouth once daily atorvastatin 40 mg tablet 40 mg PO QPM Qty: 30 0RF Discharge Orders: Discharge ED (Routine); Ordered 09/17/23 Ordered By: Gomez Nieves Referrals: Kim Smith DO [Primary Care Provider] - 1-3 days Discharge Diet: Advance as tolerated Discharge Activity: Resume usual activity Patient Instructions: Diverticulitis (ED), Urinary Retention in Men (ED), Abdominal Pain (ED) Activity Restrictions/Additional Instructions: Take all your medicine as directed. Please keep the Hall catheter in place until seen by your primary care doctor or urologist Please follow-up with them within the next 7 to 10 days For further evaluation and treatment. 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 Social History Smoking and tobacco/nicotine status: former use of tobacco/nicotine Alcohol intake: never Adopted: No Caregiver/support person: No Lives independently: No Household members: spouse Marital status: Current occupational status: retired Course 2 Vital Signs: Vital signs: Vital Signs Temperature 98.8 F 09/17/23 16:35 Pulse Rate 104 H 09/17/23 22:27 Respiratory Rate 18 09/17/23 22:27 Blood Pressure 148/80 09/17/23 22:27 Pulse Oximetry 89 L 09/17/23 22:27 Oxygen Delivery Me thod Room Air 09/17/23 22:27 MDM - Abdominal Pain Medical Decision Making Patient presents to the ER with abdominal pain and acute urinary retention. Patient had a bladder scan and then a Hall inserted. Patient felt improvement with this alone. Patient was given Toradol 30 mg IV as well as 4 mg of morphine and 4 mg Zofran IV and patient's pain improved even more. Patient's lab work showed he had elevated white count at 18.9 and his urinalysis was negative. Otherwise it was unremarkable. Patient's x-ray read off is no dilated loops of bowel. But with moderate colonic stool burden. A CT scan was ordered due to the patient's elevated white count. Waiting on the CT scan patient had a large BM and said he felt even better. CT scan results are pending. CT scan shows diverticulitis did talk to patient and family at length I did offer admission he states he wants to go home we will place on Cipro Flagyl at home he is continue to take laxatives at home we will leave Hall in place for his urinary tension he is to follow-up with his PCP I informed if he has any worsening pain or any fever he is to return as he likely will need admitted for IV to biotics patient and family understand agree to plan Lab Data 09/17/23 16:49 09/17/23 16:49 Labs/Radiology: Radiology Impressions KUB X-Ray 09/17/23 16:37 IMPRESSION: 1. No dilated loops of bowel. 2. Moderate colonic stool burden. 3. Sclerotic focus in the right inferior iliac bone, appears slightly increased in size compared to 2018 radiographs. Correlation with prior cross-sectional imaging, if available, would be helpful for further characterization. Abdomen/Pelvis CT 09/17/23 20:53 IMPRESSION: 1. There is pericolonic fluid/stranding about the distal sigmoid/proximal rectum. There is sigmoid diverticulosis slightly more proximally, but the pericolonic inflammatory change is slightly distal to this as above. Considerations include colitis versus diverticulitis. 2. Large volume of stool within the rectal vault, raises suspicion for impaction, correlate clinically. Laboratory Results WBC 18.93 10^3/uL (3.29-11.43) H 09/17/23 16:49 RBC 5.57 10^6/uL (3.85-5.65) 09/17/23 16:49 Hgb 16.40 g/dL (11.27-16.99) 09/17/23 16:49 Hct 53.1 % (37-53) H 09/17/23 16:49 MCV 95.3 fl (82-101) 09/17/23 16:49 MCH 29.4 pg (27-33) 09/17/23 16:49 MCHC 30.9 g/dL (30-55) 09/17/23 16:49 RDW 13.2 % (12.1-15.1) 09/17/23 16:49 Plt Count 220 10^3/cmm (157-399) 09/17/23 16:49 MPV 10.5 fL (7.4-10.4) H 09/17/23 16:49 Neut % (Auto) 86.2 % 09/17/23 16:49 Lymph % (Auto) 5.7 % 09/17/23 16:49 [place] % (Auto) 7.3 % 09/17/23 16:49 Eos % (Auto) 0.1 % 09/17/23 16:49 Baso % (Auto) 0.3 % 09/17/23 16:49 Neut # (Auto) 16.33 10^3/uL (1.8-7.7) H 09/17/23 16:49 Lymph # (Auto) 1.1 10^3/uL (0.8-4.8) 09/17/23 16:49 [place] # (Auto) 1.4 10^3/uL (0.2-0.9) H 09/17/23 16:49 Eos # (Auto) 0.0 10^3/uL (0.0-0.8) 09/17/23 16:49 Baso # (Auto) 0.1 10^3/uL (0.0-0.1) 09/17/23 16:49 Nucleated RBC % (auto) 0 % 09/17/23 16:49 Nucleated RBCs # 0.0 /100WBC 09/17/23 16:49 Sodium 138 mmol/L (136-145) 09/17/23 16:49 Potassium 4.4 mmol/L (3.5-5.1) 09/17/23 16:49 Chloride 106 mmol/L (98-107) 09/17/23 16:49 Carbon Dioxide 17 mmol/L (22-29) L 09/17/23 16:49 Anion Gap 19.4 (5-19) H 09/17/23 16:49 BUN 19 mg/dL (8-23) 09/17/23 16:49 Creatinine 1.1 mg/dL (0.7-1.2) 09/17/23 16:49 GFR Calculation Not Reportable 09/17/23 16:49 Glucose 103 mg/dL (65-115) 09/17/23 16:49 Calculated Osmolality 289 mOsm/kg (285-295) 09/17/23 16:49 Calcium 9.0 mg/dL (8.5-10.5) 09/17/23 16:49 Total Bilirubin 0.3 mg/dL (0.15-1.2) 09/17/23 16:49 AST 21 U/L (0-40) 09/17/23 16:49 ALT 16 U/L (0-41) 09/17/23 16:49 Alkaline Phosphatase 90 U/L (40-130) 09/17/23 16:49 Total Protein 7.1 g/dL (6.6-8.7) 09/17/23 16:49 Albumin 4.0 g/dL (3.5-5.2) 09/17/23 16:49 Globulin 3.1 g/dL (1.3-4.6) 09/17/23 16:49 Urine Color Dark yellow (Yellow) 09/17/23 17:34 Urine Appearance Clear (CLEAR) 09/17/23 17:34 Urine pH 5 (5-7) 09/17/23 17:34 Ur Specific [place] 1.025 (1.005-1.030) 09/17/23 17:34 Urine Protein Neg (Negative) 09/17/23 17:34 Urine Glucose (UA) Norm (Normal) 09/17/23 17:34 Urine Ketones Negative (Negative) 09/17/23 17:34 Urine Blood Neg (Negative) 09/17/23 17:34 Urine Nitrate Negative (Negative) 09/17/23 17:34 Urine Bilirubin Neg (Negative) 09/17/23 17:34 Urine Urobilinogen Norm mg/dL (Negative) 09/17/23 17:34 Ur Leukocyte Esterase Negative (Negative) 09/17/23 17:34 Discharge Plan Discharge Patient Disposition: Home Clinical Impression: Acute urinary retention, Diverticulitis Abdominal pain Qualifiers: Abdominal location: unspecified location Qualified Code(s): R10.9 - Unspecified abdominal pain Constipation Qualifiers: Constipation type: unspecified constipation type Qualified Code(s): K59.00 - Constipation, unspecified Condition: Stable Prescriptions: New Colace 100 mg capsule 200 mg PO BID PRN (Reason: constipation) Qty: 30 0RF Dulcolax (bisacodyl) 5 mg tablet,delayed release (DR/EC) 5 mg PO BID PRN (Reason: constipation) Qty: 30 0RF metronidazole 500 mg tablet 500 mg PO Q8H 7 Days Qty: 21 0RF Cipro 500 mg tablet 500 mg PO BID Qty: 14 0RF No Action prednisone 5 mg tablet See Rx Instructions PO .COMPLEX PRN (Reason: joint pain flare) Qty: 30 1RF Rx Instructions: take 1 or 2 tabs daily for 2-5 days prn joint pain flare PO PRN; diclofenac sodium 1 % gel 2 g topical QID Qty: 100 2RF Rx Instructions: apply to affected area as needed sildenafil 100 mg tablet See Rx Instructions .ROUTE .COMPLEX Qty: 20 6RF Rx Instructions: 1/2 TO 1 TAB 1 hour before intercourse, on empty stomach, NO NITROGLYCERIN benazepril 20 mg tablet 20 mg PO DAILY omeprazole 20 mg tablet,delayed release (DR/EC) 20 mg PO DAILY hydrocodone-acetaminophen 5-325 mg tablet 1 tab PO BID PRN folic acid 1 mg tablet 1 mg PO DAILY Qty: 90 3RF methotrexate sodium 25 mg/mL solution 15 mg IM .Q7days Qty: 10 1RF dutasteride 0.5 mg capsule See Rx Instructions .ROUTE .COMPLEX Qty: 90 3RF Dose Instruction: Take 1 capsule by mouth once daily Rx Instructions: Take 1 capsule by mouth once daily atorvastatin 40 mg tablet 40 mg PO QPM Qty: 30 0RF Discharge Orders: Discharge ED (Routine); Ordered 09/17/23 Ordered By: Gomez Nieves Referrals: Kim Smith DO [Primary Care Provider] - 1-3 days Discharge Diet: Advance as tolerated Discharge Activity: Resume usual activity Patient Instructions: Diverticulitis (ED), Urinary Retention in Men (ED), Abdominal Pain (ED) Activity Restrictions/Additional Instructions: Take all your medicine as directed. Please keep the Hall catheter in place until seen by your primary care doctor or urologist Please follow-up with them within the next 7 to 10 days For further evaluation and treatment. Coding Level of Care Code ED Budget Coordinator for Velvet Gutierrez
[2023-09-17] MEDS: ketorolac 30 mg/mL INJ IVP (17:06)
[2023-09-17 17:23] LABS: Basophils # 0.1 10^3/uL (0.0-0.1); Basophils % 0.3 %; Eosinophils % 0.1 %; Hematocrit 53.1 % (37-53); Lymphocytes # 1.1 10^3/uL (0.8-4.8); Lymphocytes % 5.7 %; Mean Corpuscular HGB Conc 30.9 g/dL (30-55); Mean Corpuscular Hemoglobin 29.4 pg (27-33); Mean Corpuscular Volume 95.3 fl (82-101); Mean Platelet Volume 10.5 fL (7.4-10.4); Monocytes # 1.4 10^3/uL (0.2-0.9); Monocytes % 7.3 %; Neutrophils # 16.33 10^3/uL (1.8-7.7); Neutrophils % 86.2 %; Nucleated Red Blood Cells % 0 %; Platelet Count 220 10^3/cmm (157-399); Red Blood Count 5.57 10^6/uL (3.85-5.65); Red Cell Distribution Width 13.2 % (12.1-15.1); White Blood Count 18.93 10^3/uL (3.29-11.43)
[2023-09-17 17:49] LABS: Alanine Aminotransferase 16 U/L (0-41); Alkaline Phosphatase 90 U/L (40-130); Blood Urea Nitrogen 19 mg/dL (8-23); Carbon Dioxide 17 mmol/L (22-29); Chloride 106 mmol/L (98-107); Globulin 3.1 g/dL (1.3-4.6); Glucose 103 mg/dL (65-115); Osmolality Calculated 289 mOsm/kg (285-295); Sodium 138 mmol/L (136-145); Total Bilirubin 0.3 mg/dL (0.15-1.2); Total Protein 7.1 g/dL (6.6-8.7)
[2023-09-17 17:59] LABS: Anion Gap 19.4 (5-19); Aspartate Amino Transferase 21 U/L (0-40); Potassium 4.4 mmol/L (3.5-5.1)
[2023-09-17 18:10] LABS: Add Urine Microscopic? NO; Charge for UA Resulting for Rev
[2023-09-17 18:30] LABS: Bilirubin Urine Neg (Negative); Blood Urine Neg (Negative); Glucose Urine UA Norm (Normal); Ketones Urine Negative (Negative); Leukocyte Esterase Urine Negative (Negative); Nitrate Urine Negative (Negative); Protein Urine Neg (Negative); Specific Gravity, Urine 1.025 (1.005-1.030); Urine Appearance Clear (CLEAR); Urine Color Dark Yellow (Yellow); Urobilinogen Urine Norm (Negative); pH Urine 5 (5-7)
[2023-09-17] MEDS: morphine 4 mg/mL SDV 1 mL IVP (20:20)
[2023-09-17] MEDS: ondansetron 2 mg/ML SDV 2 mL 4 MG IVP (20:20)
--- NOTE | 2023-09-17 20:40 | PC.NURSE ---
Patient stated to Dr Mccain that he felt like he was compacted; requested for digital rectal examination to see if patient was compacted. This nurse performed examination, did not find any stool and informed Dr Mccain. Order put in for lactulose and suppository.
--- NOTE | 2023-09-17 20:53 | CTR_ITS ---
PROCEDURE INFORMATION: Exam: CT Abdomen And Pelvis With Contrast Exam date and time: 09/17/2023 9:34 PM Age: 83 years old Clinical indication: Constipation; Abdominal pain; Generalized; Additional info: Abd pain, constipation, leukocytosis, urinary retention TECHNIQUE: Imaging protocol: Computed tomography of the abdomen and pelvis with contrast. Radiation optimization: All CT scans at this facility use at least one of these dose optimization techniques: automated exposure control; mA and/or kV adjustment per patient size (includes targeted exams where dose is matched to clinical indication); or iterative reconstruction. Contrast material: OMNI 350; Contrast volume: 80 ml; Contrast route: INTRAVENOUS (IV); REPORTING DATA: Count of CT and Cardiac NM exams in prior 12 months: This patient has received 0 known CTs and 0 known cardiac nuclear medicine studies in the 12 months prior to the current study. COMPARISON: CR (ABDOMEN, ) 09/17/2023 5:01 PM RADIATION DOSE METRICS: Total DLP (mGy-cm): 948.5 FINDINGS: Lungs: Streaky pleural-based opacity in the dependent right lung, most likely atelectasis/scarring. Liver: Unremarkable. Gallbladder and bile ducts: Cholecystectomy. Pancreas: Unremarkable. No duct dilation. Spleen: Unremarkable. Adrenal glands: Unremarkable. Kidneys and ureters: Few punctate nonobstructing renal calculi bilaterally. Stomach and bowel: Large volume of stool within the rectal vault, raises suspicion for impaction, correlate clinically. There is mild pericolonic fluid and stranding about the proximal rectum/distal sigmoid colon. There is also increased density within the presacral soft tissues. There is diverticulosis throughout the proximal sigmoid and distal ascending colon, but no associated peridiverticular fluid/stranding in these areas. No dilated loops of small bowel or evidence of bowel obstruction. Appendix: Appendix is normal. Intraperitoneal space: Unremarkable. No free air. No significant fluid collection. Vasculature: No abdominal aortic aneurysm. Lymph nodes: No enlarged lymph nodes. Urinary bladder: Bladder is decompressed with Hall catheter present. Reproductive: Unremarkable as visualized. Bones/joints: Sclerotic foci in the bilateral iliac bones, slightly increased in size on the right compared to 2018 exam, but density and morphology most consistent with bone islands. No acute fracture. Degenerative changes. Soft tissues: See Stomach and bowel finding. CT/CT abdomen pelvis w con* [id number] IMPRESSION: 1. There is pericolonic fluid/stranding about the distal sigmoid/proximal rectum. There is sigmoid diverticulosis slightly more proximally, but the pericolonic inflammatory change is slightly distal to this as above. Considerations include colitis versus diverticulitis. 2. Large volume of stool within the rectal vault, raises suspicion for impaction, correlate clinically.
--- NOTE | 2023-09-17 21:09 | PC.NURSE ---
Patient produced large, soft stool and stated that he had great relief but still having mild abdominal pain. When asked if he still wanted the suppository and lactulose, patient responded probably not. Dr Mccain notified. instructed nurse to hold off on meds for now.
[2023-09-17] MEDS: iohexol 350 mg/mL 500 mL Btl (per mL) IV (21:45)
[2023-09-17] MEDS: metroNIDAZOLE 500 MG Tablet PO (22:25)
[2023-09-17] MEDS: ciprofloxacin 500 mg Tablet PO (22:25)
== END 2023-09-17 23:03 | disposition home or self-care (01) ==
PROVIDERS: Emergency Medicine; Emergency Provider Emergency Medicine; PCP Family Medicine
DX: K57.92 Diverticulitis of intestine, part unspecified, without perforation or abscess without bleeding (principal); R33.9 Retention of urine, unspecified; K59.00 Constipation, unspecified; Z87.891 Personal history of nicotine dependence
CPT/HCPCS: 36415; 51702; 51798; 74018; 74177; 80053; 81003; 85025; 96374; 96375; 99285; J1885; J2270; J2405; Q9967

== ENCOUNTER 2023-09-21 22:50 | Emergency (ER) | payer MEDICARE, SELFPAY ==
[2023-09-21 22:58] VITALS: BP 173/97; PULSE 105; RESP 17; TEMP 36.5; O2SAT 92; BMI 30.7
[2023-09-22 00:05] VITALS: BP 173/97; PULSE 105; RESP 17; TEMP 36.5; O2SAT 92
--- NOTE | 2023-09-22 00:20 | W.ED.MALEGU ---
HPI - Male Genitourinary General: Chief complaint: Urogenital-Male Stated complaint: Cath Not Working Properly Time Seen by Provider: 09/21/23 23:24 Source: patient Mode of arrival: ambulatory Limitations: no limitations History of Present Illness: Patient presents emergency department today accompanied by family for evaluation treatment of concerns for issues with his indwelling Rosario catheter. Patient reports that he had 1 placed while he was in the hospital and is supposed to be having his follow-up appointment in 48 hours however, he feels today that he has not been having urine output into his bag but, feels like he is urinating. Patient denies lower abdominal pains. He has not had any moisture in his depends. He states he has been taking oral intake today like normal. Patient is currently on antibiotics for bowel infection and today reports having the onset of some loose stool. No vomiting. No fever. 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 Social History Smoking and tobacco/nicotine status: former use of tobacco/nicotine Alcohol intake: never Adopted: No Caregiver/support person: No Lives independently: No Household members: spouse Marital status: Current occupational status: retired Physical Exam Const: COMMON NORMALS: no acute distress, average body habitus, patient oriented x3 and alert HENMT: COMMON NORMALS: normocephalic, atraumatic, hearing grossly normal bilaterally and moist oral mucous membranes HEAD & SCALP: normocephalic and atraumatic Eye: COMMON NORMALS: Equal, round and reactive pupils present, EOMs intact bilaterally and conjunctivae normal CONJUNCTIVA: Yes conjunctivae normal PUPIL: Yes Equal, round and reactive pupils present Neck/C-Spine: COMMON NORMALS: no JVD Lymph: LYMPHATIC: no lymphadenopathy noted Resp: COMMON NORMALS: normal respiratory effort, No retractions and No use of accessory muscles Cardio: COMMON NORMALS: no JVD and regular rate RATE: regular rate GI: OTHER: Patient is nontender to palpation in the suprapubic region. Bladder ultrasound reveals 8 to 11 cc of urine in the bladder. : OTHER: Patient has indwelling Rosario catheter tubing still in place. Evaluation of the meatus and the urethral opening showed no signs of any redness. There is no moisture in the genital region concerning for leaking of his tubing. Extremity: COMMON NORMALS: normal to inspection, full ROM and capillary refill normal Neuro: COMMON NORMALS: patient oriented x3 SENSORIUM/ORIENTATION: Yes alert Psych: COMMON NORMALS: mental status grossly normal, cooperative, normal affect, speech normal and activity/motor behavior normal SPEECH: Yes normal speech Course Vital Signs: Vital signs: Vital Signs Temperature 97.7 F 09/22/23 00:05 Pulse Rate 105 H 09/22/23 00:05 Respiratory Rate 17 09/22/23 00:05 Blood Pressure 173/97 09/22/23 00:05 Pulse Oximetry 92 09/22/23 00:05 Oxygen Delivery Me thod Room Air 09/21/23 22:58 MDM - Male Medical Decision Making Patient presents to the emergency department today with concerns for decreased urine output into his Rosario bag. However, patient's bladder scan today reveals only 8 to 11 cc of urine in the bladder. We did check this reading multiple times throughout his evaluation. Nursing also irrigated his tubing with saline solution and there was visible return of saline solution into a completely emptied Rosario leg bag. This assured us that we were getting return flow from the bladder through the Rosario catheter. Discussed with the patient that there appears to be no signs of any occlusion. He does not appear to be retaining any urine in the bladder. There was no signs of leakage from around the rosario tubing. He has an upcoming appointment on Thursday for follow-up which she is instructed to keep for recheck. Patient was told to return to the emergency department if he develops abdominal pains, any blood clots in his bag, any vomiting, or fever. Patient verbalizes understanding and agreement to treatment plan. Differential Diagnosis Unlikely urinary tract infection, urethritis, epididymitis, prostatitis or acute retention of urine No radiology studies performed this visit Discharge Plan Discharge Patient Disposition: Home Clinical Impression: Rosario catheter problem Qualifiers: Encounter type: initial encounter Qualified Code(s): T83.9XXA - Unspecified complication of genitourinary prosthetic device, implant and graft, initial encounter Condition: Stable Prescriptions: No Action prednisone 5 mg tablet See Rx Instructions PO .COMPLEX PRN (Reason: joint pain flare) Qty: 30 1RF Rx Instructions: take 1 or 2 tabs daily for 2-5 days prn joint pain flare PO PRN; diclofenac sodium 1 % gel 2 g topical QID Qty: 100 2RF Rx Instructions: apply to affected area as needed sildenafil 100 mg tablet See Rx Instructions .ROUTE .COMPLEX Qty: 20 6RF Rx Instructions: 1/2 TO 1 TAB 1 hour before intercourse, on empty stomach, NO NITROGLYCERIN benazepril 20 mg tablet 20 mg PO DAILY omeprazole 20 mg tablet,delayed release (DR/EC) 20 mg PO DAILY hydrocodone-acetaminophen 5-325 mg tablet 1 tab PO BID PRN folic acid 1 mg tablet 1 mg PO DAILY Qty: 90 3RF methotrexate sodium 25 mg/mL solution 15 mg IM .Q7days Qty: 10 1RF dutasteride 0.5 mg capsule See Rx Instructions .ROUTE .COMPLEX Qty: 90 3RF Dose Instruction: Take 1 capsule by mouth once daily Rx Instructions: Take 1 capsule by mouth once daily atorvastatin 40 mg tablet 40 mg PO QPM Qty: 30 0RF Colace 100 mg capsule 200 mg PO BID PRN (Reason: constipation) Qty: 30 0RF Dulcolax (bisacodyl) 5 mg tablet,delayed release (DR/EC) 5 mg PO BID PRN (Reason: constipation) Qty: 30 0RF metronidazole 500 mg tablet 500 mg PO Q8H 7 Days Qty: 21 0RF Cipro 500 mg tablet 500 mg PO BID Qty: 14 0RF Discharge Orders: Discharge ED (Routine); Ordered 09/21/23 Ordered By: Surekha Lemon Referrals: Kim Smith DO [Primary Care Provider] - Discharge Diet: Usual diet Discharge Activity: Increase activity as tolerated Patient Instructions: Rosario Catheter Care Activity Restrictions/Additional Instructions: Bladder scan today revealed only 8 to 11 cc of urine in your bladder. We did irrigate the tubing to make sure there were no signs of any occlusion and tubing was able to be easily flushed and full amount of saline flush was visible emptying into your leg bag. Keep your upcoming appointment to have your catheter removed on Thursday. Carefully watch for any blood or clots passed down into the bag, any new onset of low abdominal pains, new onset fever, or any vomiting. If these occur you need to come back to the emergency department. Coding Level of Care Code ED Crown Assembly Machine Operator for Velvet Gutierrez
== END 2023-09-22 00:10 | disposition home or self-care (01) ==
PROVIDERS: Emergency Provider Physician Assistant; PCP Family Medicine
DX: T83.098A Other mechanical complication of other urinary catheter, initial encounter (principal); Y73.1 Therapeutic (nonsurgical) and rehabilitative gastroenterology and urology devices associated with adverse incidents; Z87.891 Personal history of nicotine dependence
CPT/HCPCS: 99282

== ENCOUNTER → 2023-11-16 14:21 | Outpatient (BNVA) | payer MEDICARE, SELFPAY | PROVIDERS: PCP Family Medicine; Visit Provider Internal Medicine Rheumatology | DX: M06.09 Rheumatoid arthritis without rheumatoid factor, multiple sites (principal); Z71.89 Other specified counseling; Z79.899 Other long term (current) drug therapy; M51.37 Other intervertebral disc degeneration, lumbosacral region | CPT/HCPCS: 99214 ==

== ENCOUNTER → 2024-02-18 13:52 | Outpatient (BNVA) | payer MEDICARE, SELFPAY | PROVIDERS: PCP Family Medicine; Visit Provider Internal Medicine Rheumatology | DX: M06.09 Rheumatoid arthritis without rheumatoid factor, multiple sites (principal); Z71.89 Other specified counseling; Z79.899 Other long term (current) drug therapy; M51.37 Other intervertebral disc degeneration, lumbosacral region | CPT/HCPCS: 99214 ==

== ENCOUNTER 2024-06-08 07:16 | Emergency (ER) | payer MEDICARE, SELFPAY ==
[2024-06-08 07:17] VITALS: PULSE 84; RESP 17; TEMP 36.4; O2SAT 95; BMI 32.3
--- NOTE | 2024-06-08 07:24 | CTR_ITS ---
PROCEDURE INFORMATION: Exam: CT Head Without Contrast Exam date and time: 06/08/2024 7:35 AM Age: 83 years old Clinical indication: Pain; Other: R side weakness TECHNIQUE: Imaging protocol: Computed tomography of the head without contrast. Radiation optimization: All CT scans at this facility use at least one of these dose optimization techniques: automated exposure control; mA and/or kV adjustment per patient size (includes targeted exams where dose is matched to clinical indication); or iterative reconstruction. COMPARISON: No relevant prior studies available. RADIATION DOSE METRICS: Total DLP (mGy-cm): 1118 FINDINGS: Brain: There is moderate cerebral atrophy. There is mild diffuse heterogeneity of the white matter attenuation, consistent with chronic white matter ischemic changes. Negative for intracranial hemorrhage. Negative for intracranial mass. Negative for midline shift of brain. No acute brain ischemia visualized. Cerebral ventricles: No ventriculomegaly. Paranasal sinuses: Visualized sinuses are unremarkable. No fluid levels. Mastoid air cells: Visualized mastoid air cells are well aerated. Bones: Unremarkable. No acute fracture. Soft tissues: Unremarkable. CT/CT head wo con* [id number] IMPRESSION: Negative for acute intracranial pathology.
--- NOTE | 2024-06-08 07:31 | W.ED.WEAKNES ---
HPI - Weakness General: Chief complaint: Weakness Stated complaint: right sided weakness Time Seen by Provider: 06/08/24 07:23 History of Present Illness: 83-year-old man with a history of rheumatoid arthritis, hypertension and chronic pain syndrome can take 1/2 tablet of 5 mg hydrocodone twice a day who presents emergency room by ambulance from home with stiffness and weakness on his right side. He says every morning when he wakes up he is extremely stiff all over but this morning when he got up at 2 AM his right side felt more weak. He says he thinks it might be his back and shoulder and just related to his rheumatoid but also had some concern for stroke. No fevers. No abdominal pain. He has swelling in his legs and the right is worse than the left but he says this is also his baseline. Altered mental status. No obvious focal motor deficits on exam he does seem to have more trouble lifting his right leg off the bed. Review of Systems Narrative: Constitutional symptoms: Negative except as documented in HPI. Skin symptoms: Negative except as documented in HPI. Eye symptoms: Negative except as documented in HPI. ENMT symptoms: Negative except as documented in HPI. Respiratory symptoms: Negative except as documented in HPI. Cardiovascular symptoms: Negative except as documented in HPI. Gastrointestinal symptoms: Negative except as documented in HPI. Genitourinary symptoms: Negative except as documented in HPI. Musculoskeletal symptoms: Negative except as documented in HPI. Neurologic symptoms: Negative except as documented in HPI. Psychiatric symptoms: Negative except as documented in HPI. Endocrine symptoms: Negative except as documented in HPI. 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 Social History (Reviewed 05/02/24 @ 14:23 by LISSA Bryan Smoking and tobacco/nicotine status: never used tobacco/nicotine Alcohol intake: never Adopted: No Caregiver/support person: No Lives independently: No Household members: spouse Marital status: Current occupational status: retired Physical Exam Narrative: EXAM NARRATIVE: General: Alert, no acute distress. Skin: Warm, dry. Head: Normocephalic, atraumatic. Neck: Supple, trachea midline. Eye: Extraocular movements are intact. Ears, nose, mouth and throat: mucosa moist. Cardiovascular: Regular, Normal peripheral perfusion. Respiratory: Lungs are clear to auscultation, respirations are non-labored, breath sounds are equal, Symmetrical chest wall expansion. Gastrointestinal: Soft, Nontender, Non distended Musculoskeletal: Normal ROM, no deformity. Neurological: Alert and oriented, No focal neurological deficit observed. Psychiatric: Cooperative, appropriate mood & affect. Course Vital Signs: Vital signs: Vital Signs Temperature 97.6 F 06/08/24 07:17 Pulse Rate 84 06/08/24 07:56 Respiratory Rate 17 06/08/24 07:17 Blood Pressure 158/90 06/08/24 07:56 Pulse Oximetry 94 06/08/24 07:56 Oxygen Delivery Me thod Room Air 06/08/24 07:56 MDM - Weakness Medical Decision Making Medical decision making: Differential diagnosis for patient with focal neurologic deficit(s) includes but not limited to and based on the above HPI, review of systems and physical exam: ischemic stroke, hemorrhagic stroke and embolic stroke secondary to atrial fibrillation), TIA, Keita's palsey, metabolic encephalopathy with previous stroke. Orders placed to evaluate differential diagnosis based on the above differential, HPI and physical exam EK:58 AM. Rate 70. Normal sinus rhythm, No ST-T changes, no ectopy, right bundle branch block, This was reviewed and interpreted by myself the ER physician at [address] head: No acute intracranial process. no intracranial hemorrhage, no evidence of infarct. no evidence of acute fracture.This was reviewed and interpreted by myself the ER physician. Lab Review: Laboratory results were reviewed and interpreted by myself the emergency room physician. Lab work is unremarkable. No leukocytosis. No anemia. No renal failure. Urine has 6-10 whites. No bacteria. However this might explain temporary delirium this morning. I reviewed the patient's medical record. Reexamination: Patient remained stable. No increased work of breathing. No altered mental status. No focal motor deficits. Assessment and plan: Urinary tract infection Possible TIA ?Discussed taking aspirin daily. Home on Keflex. - Discharged home - Discussed findings and plan with patient. Answered any questions. - All laboratory values were reviewed and interpreted personally by myself, the ER physician - All imaging was reviewed and interpreted personally by myself, the ER physician. - Evaluation and treatment of this problem were appropriate in the emergency setting Lab Data 06/08/24 07:30 06/08/24 07:[address] 06/08/24 07:24 IMPRESSION: Negative for acute intracranial pathology. Laboratory Results WBC 6.10 10^3/uL (3.29-11.43) 06/08/24 07:30 RBC 5.28 10^6/uL (3.85-5.65) 06/08/24 07:30 Hgb 14.20 g/dL (11.27-16.99) 06/08/24 07:30 Hct 44.0 % (37-53) 06/08/24 07:30 MCV 83.3 fl (82-101) 06/08/24 07:30 MCH 26.9 pg (27-33) L 06/08/24 07:30 MCHC 32.3 g/dL (30-55) 06/08/24 07:30 RDW 16.1 % (12.1-15.1) H 06/08/24 07:30 Plt Count 282 10^3/cmm (157-399) 06/08/24 07:30 MPV 8.6 fL (7.4-10.4) 06/08/24 07:30 Neut % (Auto) 57.3 % 06/08/24 07:30 Lymph % (Auto) 27.9 % 06/08/24 07:30 [place] % (Auto) 11.0 % 06/08/24 07:30 Eos % (Auto) 3.3 % 06/08/24 07:30 Baso % (Auto) 0.3 % 06/08/24 07:30 Neut # (Auto) 3.50 10^3/uL (1.8-7.7) 06/08/24 07:30 Lymph # (Auto) 1.7 10^3/uL (0.8-4.8) 06/08/24 07:30 [place] # (Auto) 0.7 10^3/uL (0.2-0.9) 06/08/24 07:30 Eos # (Auto) 0.2 10^3/uL (0.0-0.8) 06/08/24 07:30 Baso # (Auto) 0.0 10^3/uL (0.0-0.1) 06/08/24 07:30 Nucleated RBC % (auto) 0 % 06/08/24 07:30 Nucleated RBCs # 0.0 /100WBC 06/08/24 07:30 Sodium 138 mmol/L (136-145) 06/08/24 07:30 Potassium 3.9 mmol/L (3.5-5.1) 06/08/24 07:30 Chloride 105 mmol/L (98-107) 06/08/24 07:30 Carbon Dioxide 22 mmol/L (22-29) 06/08/24 07:30 Anion Gap 14.9 (5-19) 06/08/24 07:30 BUN 15 mg/dL (8-23) 06/08/24 07:30 Creatinine 0.9 mg/dL (0.7-1.2) 06/08/24 07:30 GFR Calculation Not Reportable 06/08/24 07:30 Glucose 110 mg/dL (65-115) 06/08/24 07:30 Calculated Osmolality 287 mOsm/kg (285-295) 06/08/24 07:30 Calcium 8.8 mg/dL (8.5-10.5) 06/08/24 07:30 Total Bilirubin 0.4 mg/dL (0.15-1.2) 06/08/24 07:30 AST 13 U/L (0-40) 06/08/24 07:30 ALT 11 U/L (0-41) 06/08/24 07:30 Alkaline Phosphatase 93 U/L (40-130) 06/08/24 07:30 C-Reactive Protein 11.4 mg/L (0.0-4.9) H 06/08/24 07:30 Total Protein 6.9 g/dL (6.6-8.7) 06/08/24 07:30 Albumin 3.5 g/dL (3.5-5.2) 06/08/24 07:30 Globulin 3.4 g/dL (1.3-4.6) 06/08/24 07:30 Urine Color Yellow (Yellow) 06/08/24 07:54 Urine Appearance Clear (CLEAR) 06/08/24 07:54 Urine pH 6.0 (5-7) 06/08/24 07:54 Ur Specific [place] 1.012 (1.005-1.030) 06/08/24 07:54 Urine Protein Negative (Negative) 06/08/24 07:54 Urine Glucose (UA) Negative (Normal) 06/08/24 07:54 Urine Ketones Negative (Negative) 06/08/24 07:54 Urine Blood Negative (Negative) 06/08/24 07:54 Urine Nitrate Negative (Negative) 06/08/24 07:54 Urine Bilirubin Negative (Negative) 06/08/24 07:54 Urine Urobilinogen 1.0 mg/dL (Negative) 06/08/24 07:54 Ur Leukocyte Esterase Negative (Negative) 06/08/24 07:54 Urine RBC 0-2 /hpf (0-2) 06/08/24 07:54 Urine WBC 6-10 /hpf (0-5) 06/08/24 07:54 Ur Squamous Epith Cells 0-5 /hpf (0-5) 06/08/24 07:54 Amorphous Sediment Not Reportable 06/08/24 07:54 Urine Bacteria None seen /hpf (NONE) 06/08/24 07:54 Hyaline Casts 0-4 /lpf H 06/08/24 07:54 All radiology interpretation(s) finalized by discharge Discharge Plan Discharge Patient Disposition: Home Clinical Impression: TIA (transient ischemic attack), Urinary tract infection Condition: Stable Prescriptions: New cephalexin 500 mg capsule 500 mg PO BID 5 Days Qty: 10 0RF No Action diclofenac sodium 1 % gel 2 g topical QID Qty: 100 2RF Rx Instructions: apply to affected area as needed sildenafil 100 mg tablet See Rx Instructions .ROUTE .COMPLEX Qty: 20 6RF Rx Instructions: 1/2 TO 1 TAB 1 hour before intercourse, on empty stomach, NO NITROGLYCERIN benazepril 20 mg tablet 20 mg PO DAILY omeprazole 20 mg tablet,delayed release (DR/EC) 20 mg PO DAILY hydrocodone-acetaminophen 5-325 mg tablet 1 tab PO BID PRN dutasteride 0.5 mg capsule See Rx Instructions .ROUTE .COMPLEX Qty: 90 3RF Dose Instruction: Take 1 capsule by mouth once daily Rx Instructions: Take 1 capsule by mouth once daily prednisone 5 mg tablet See Rx Instructions PO .COMPLEX PRN (Reason: joint pain flare) Qty: 30 1RF Rx Instructions: take 1 or 2 tabs daily for 2-5 days prn joint pain flare PO PRN; methotrexate sodium 25 mg/mL solution 15 mg SUBCUT .Q7days Qty: 10 1RF folic acid 1 mg tablet 1 mg PO DAILY Qty: 90 3RF atorvastatin 40 mg tablet 40 mg PO QPM Qty: 30 0RF Colace 100 mg capsule 200 mg PO BID PRN (Reason: constipation) Qty: 30 0RF Dulcolax (bisacodyl) 5 mg tablet,delayed release (DR/EC) 5 mg PO BID PRN (Reason: constipation) Qty: 30 0RF Cipro 500 mg tablet 500 mg PO BID Qty: 14 0RF Discharge Orders: Discharge ED (Routine); Ordered 06/08/24 Ordered By: Florence Sheridan Referrals: Kim Smith DO [Primary Care Provider] - Discharge Diet: Usual diet Discharge Activity: Increase activity as tolerated Patient Instructions: Transient Ischemic Attack (ED) Activity Restrictions/Additional Instructions: Thank you for choosing [facility] for your healthcare needs today. Please realize this is an emergency room and that we are providing you with a medical screening exam and this may not be complete and all inclusive of all the testing and or work up that you may need to determine your ailment or severity of your illness. You have been screened and evaluated and felt safe for discharge. Health conditions do change or evolve sometimes and as such it is important that you follow up with your Primary Doctor to be re checked, 3-5 days is a general good time frame for follow up. You are always welcome to return to the ED for re assessment if your symptoms are worsening or you have new concerns Coding Level of Care Code ED Patcher Wood Welder for Velvet Gutierrez Related Data Home Medications Medication Instructions Recorded Confirmed benazepril 20 mg tablet 20 mg PO DAILY 12/06/19 02/18/24 hydrocodone 5 mg-acetaminophen 325 1 tab PO BID PRN 12/06/19 02/18/24 mg tablet omeprazole 20 mg tablet,delayed 20 mg PO DAILY 12/06/19 02/18/24 release Previous Rx's Medication Instructions Recorded sildenafil 100 mg tablet See Rx Instructions .Route 02/21/20 .COMPLEX sexual activity #20 tabs atorvastatin 40 mg tablet 40 mg PO QPM #30 tabs 05/11/20 diclofenac sodium 1 % topical gel 2 g topical QID #100 grams 10/23/21 dutasteride 0.5 mg capsule See Rx Instructions .Route 01/13/23 .COMPLEX #90 caps bisacodyl 5 mg tablet,delayed 5 mg PO BID PRN constipation #30 09/17/23 release (Dulcolax (bisacodyl)) tabs ciprofloxacin HCl 500 mg tablet 500 mg PO BID #14 tabs 09/17/23 (Cipro) docusate sodium 100 mg capsule 200 mg (2 x 100 mg) PO BID PRN 09/17/23 (Colace) constipation #30 caps prednisone 5 mg tablet See Rx Instructions PO .COMPLEX 05/10/24 PRN joint pain flare #30 tabs folic acid 1 mg tablet 1 mg PO DAILY #90 tabs 05/19/24 methotrexate sodium 25 mg/mL 15 mg (0.6 mL) SUBCUT .Q7days #10 05/19/24 injection solution mL cephalexin 500 mg capsule 500 mg PO BID 5 days #10 caps 06/08/24 Allergies Allergy/AdvReac Type Severity Reaction Status Date / Time Penicillins Allergy Unknown Unknown Verified 02/18/24 14:20 aspirin AdvReac Unknown ADR-Nausea Verified 02/18/24 14:20
[2024-06-08 07:53] LABS: Basophils % 0.3 %; Eosinophils # 0.2 10^3/uL (0.0-0.8); Eosinophils % 3.3 %; Lymphocytes # 1.7 10^3/uL (0.8-4.8); Lymphocytes % 27.9 %; Mean Corpuscular HGB Conc 32.3 g/dL (30-55); Mean Corpuscular Hemoglobin 26.9 pg (27-33); Mean Corpuscular Volume 83.3 fl (82-101); Mean Platelet Volume 8.6 fL (7.4-10.4); Monocytes # 0.7 10^3/uL (0.2-0.9); Neutrophils % 57.3 %; Nucleated Red Blood Cells % 0 %; Platelet Count 282 10^3/cmm (157-399); Red Blood Count 5.28 10^6/uL (3.85-5.65); Red Cell Distribution Width 16.1 % (12.1-15.1)
[2024-06-08 07:56] VITALS: BP 158/90; PULSE 84; O2SAT 94
--- NOTE | 2024-06-08 07:58 | ECG_ITS ---
[facility] Test Date: 2024-06-08 Pat Name: Ivan Ortiz Department: Room: Gender: Male Reducing System Operator: : 1940 Requested By: Florence Reinoso Order Number: [id number] Fuentes MD: Felix Kang M.D. Measurements Intervals [place] Rate: 70 P: 53 DC: 185 QRS: -53 QRSD: 146 T: -15 QT: 422 QTc: 456 Interpretive Statements SINUS RHYTHM INDETERMINATE AXIS RIGHT BUNDLE BRANCH BLOCK [120+ ms QRS DURATION, UPRIGHT V1, 40+ ms S IN I/aVL/V4/V5/V6] Compared to ECG 05/10/2020 09:38:02 No significant changes Electronically Signed On 06-09-2024 0:16:20 CDT by Felix Kang M.D. [email or web address]
[2024-06-08 08:04] LABS: Alanine Aminotransferase 11 U/L (0-41); Albumin Level 3.5 g/dL (3.5-5.2); Alkaline Phosphatase 93 U/L (40-130); Anion Gap 14.9 (5-19); Aspartate Amino Transferase 13 U/L (0-40); Blood Urea Nitrogen 15 mg/dL (8-23); C Reactive Protein 11.4 mg/L (0.0-4.9); Calcium 8.8 mg/dL (8.5-10.5); Carbon Dioxide 22 mmol/L (22-29); Chloride 105 mmol/L (98-107); Creatinine Clr Calc Pharmacy 65.5915; Globulin 3.4 g/dL (1.3-4.6); Glucose 110 mg/dL (65-115); Osmolality Calculated 287 mOsm/kg (285-295); Potassium 3.9 mmol/L (3.5-5.1); Sodium 138 mmol/L (136-145); Total Bilirubin 0.4 mg/dL (0.15-1.2); Total Protein 6.9 g/dL (6.6-8.7)
[2024-06-08 08:37] LABS: Bilirubin Urine Negative (Negative); Blood Urine Negative (Negative); Glucose Urine UA Negative (Normal); Ketones Urine Negative (Negative); Leukocyte Esterase Urine Negative (Negative); Nitrate Urine Negative (Negative); Protein Urine Negative (Negative); Specific Gravity, Urine 1.012 (1.005-1.030); Urine Appearance Clear (CLEAR); Urine Color Yellow (Yellow)
[2024-06-08 08:42] LABS: Bacteria Urine None Seen /hpf; Hyaline Casts Urine 0-4 /lpf; RBC Urine 0-2 /hpf (0-2); Squamous Epithelial Cell Urine 0-5 /hpf (0-5)
[2024-06-08] MEDS: dexamethasone 10 mg/mL INJ IVP (08:51)
[2024-06-08 08:55] VITALS: BP 158/90; PULSE 84; O2SAT 94
== END 2024-06-08 08:57 | disposition home or self-care (01) ==
PROVIDERS: Emergency Provider Emergency Medicine; PCP Family Medicine
DX: G45.9 Transient cerebral ischemic attack, unspecified (principal); N39.0 Urinary tract infection, site not specified; I45.10 Unspecified right bundle-branch block
CPT/HCPCS: 70450; 80053; 81001; 85025; 86140; 93005; 96374; 99285; J1100

== ENCOUNTER 2024-06-27 08:35 | Outpatient (CLI) | payer MEDICARE, SELFPAY ==
[2024-06-27 09:05] LABS: Basophils % 0.5 %; Eosinophils # 0.2 10^3/uL (0.0-0.8); Eosinophils % 3.2 %; Hematocrit 46.7 % (37-53); Lymphocytes # 1.8 10^3/uL (0.8-4.8); Lymphocytes % 31.8 %; Mean Corpuscular HGB Conc 32.3 g/dL (30-55); Mean Corpuscular Hemoglobin 27.2 pg (27-33); Mean Corpuscular Volume 84.1 fl (82-101); Mean Platelet Volume 9.3 fL (7.4-10.4); Monocytes # 0.5 10^3/uL (0.2-0.9); Monocytes % 9.4 %; Neutrophils # 3.08 10^3/uL (1.8-7.7); Neutrophils % 54.7 %; Nucleated Red Blood Cells % 0 %; Platelet Count 272 10^3/cmm (157-399); Red Blood Count 5.55 10^6/uL (3.85-5.65); Red Cell Distribution Width 18.7 % (12.1-15.1); White Blood Count 5.63 10^3/uL (3.29-11.43)
[2024-06-27 09:27] LABS: Erythrocyte Sedimentation Rate 16 mm/hr (0-10)
[2024-06-27 09:37] LABS: Alanine Aminotransferase 18 U/L (0-41); Albumin Level 4.1 g/dL (3.5-5.2); Alkaline Phosphatase 92 U/L (40-130); Aspartate Amino Transferase 19 U/L (0-40); C Reactive Protein 3.9 mg/L (0.0-4.9); Globulin 3.3 g/dL (1.3-4.6); Total Bilirubin 0.5 mg/dL (0.15-1.2); Total Protein 7.4 g/dL (6.6-8.7)
[2024-06-27 09:44] LABS: Estmated Average Glucose 126
[2024-06-27 09:50] LABS: Alanine Aminotransferase 18 U/L (0-41); Albumin Level 4.1 g/dL (3.5-5.2); Alkaline Phosphatase 93 U/L (40-130); Blood Urea Nitrogen 16 mg/dL (8-23); Calcium 9.4 mg/dL (8.5-10.5); Carbon Dioxide 24 mmol/L (22-29); Chloride 102 mmol/L (98-107); Chol HDL Ratio 5.73 mg/dL (1.0-5.00); Cholesterol 252 mg/dL (0-200); Globulin 3.4 g/dL (1.3-4.6); Glucose 107 mg/dL (65-115); HDL Cholesterol 44 mg/dL (60-100); LDL Cholesterol Calculated 175 mg/dL (50-129); LDL HDL Ratio 3.98 RATIO (0.00-3.22); Osmolality Calculated 288 mOsm/kg (285-295); Sodium 138 mmol/L (136-145); Thyroid Stimulating Hormone 2.24 uIU/mL (0.27-4.20); Total Bilirubin 0.5 mg/dL (0.15-1.2); Total Protein 7.5 g/dL (6.6-8.7); Triglycerides 164 mg/dL (0-150)
[2024-06-27 09:53] LABS: Anion Gap 16.4 (5-19); Aspartate Amino Transferase 22 U/L (0-40); Potassium 4.4 mmol/L (3.5-5.1)
== END 2024-06-27 08:36 | disposition home or self-care (01) ==
LOC: LAB 08:36
PROVIDERS: Absent Provider Family Medicine; PCP Family Medicine; Visit Provider Internal Medicine Rheumatology
DX: M06.09 Rheumatoid arthritis without rheumatoid factor, multiple sites (principal); Z79.899 Other long term (current) drug therapy; E11.40 Type 2 diabetes mellitus with diabetic neuropathy, unspecified
CPT/HCPCS: 36415; 80053; 80061; 80076; 82565; 83036; 84443; 85025; 85651; 86140

== ENCOUNTER 2024-10-26 11:26 | Outpatient (CLI) | payer MEDICARE, SELFPAY ==
[2024-10-26 12:23] LABS: Basophils % 0.3 %; Eosinophils # 0.1 10^3/uL (0.0-0.8); Eosinophils % 1.9 %; Hematocrit 46.9 % (37-53); Lymphocytes # 1.6 10^3/uL (0.8-4.8); Lymphocytes % 23.2 %; Mean Corpuscular Volume 90.7 fl (82-101); Mean Platelet Volume 9.4 fL (7.4-10.4); Monocytes % 14.8 %; Neutrophils # 4.03 10^3/uL (1.8-7.7); Neutrophils % 59.7 %; Nucleated Red Blood Cells % 0 %; Platelet Count 260 10^3/cmm (157-399); Red Blood Count 5.17 10^6/uL (3.85-5.65); Red Cell Distribution Width 15.8 % (12.1-15.1); White Blood Count 6.76 10^3/uL (3.29-11.43)
[2024-10-26 12:26] LABS: Erythrocyte Sedimentation Rate 6 mm/hr (0-10)
[2024-10-26 12:41] LABS: Alanine Aminotransferase 20 U/L (0-41); Albumin Level 4.1 g/dL (3.5-5.2); Alkaline Phosphatase 87 U/L (40-130); Aspartate Amino Transferase 20 U/L (0-40); Globulin 2.9 g/dL (1.3-4.6); Total Bilirubin 0.3 mg/dL (0.15-1.2)
== END 2024-10-26 11:27 | disposition home or self-care (01) ==
LOC: LAB 11:36
PROVIDERS: PCP Family Medicine; Visit Provider Internal Medicine Rheumatology
DX: M06.09 Rheumatoid arthritis without rheumatoid factor, multiple sites (principal); Z79.899 Other long term (current) drug therapy
CPT/HCPCS: 36415; 80076; 82565; 85025; 85651; 86140

== ENCOUNTER 2025-01-18 08:29 | Outpatient (CLI) | payer MEDICARE, SELFPAY ==
[2025-01-18 09:02] LABS: Basophils % 0.4 %; Eosinophils # 0.1 10^3/uL (0.0-0.8); Eosinophils % 1.9 %; Hematocrit 46.9 % (37-53); Lymphocytes # 1.1 10^3/uL (0.8-4.8); Mean Corpuscular HGB Conc 32.8 g/dL (30-55); Mean Corpuscular Hemoglobin 29.8 pg (27-33); Mean Corpuscular Volume 90.7 fl (82-101); Mean Platelet Volume 9.5 fL (7.4-10.4); Monocytes # 0.7 10^3/uL (0.2-0.9); Neutrophils # 3.42 10^3/uL (1.8-7.7); Neutrophils % 63.5 %; Nucleated Red Blood Cells % 0 %; Platelet Count 251 10^3/cmm (157-399); Red Blood Count 5.17 10^6/uL (3.85-5.65); Red Cell Distribution Width 16.6 % (12.1-15.1); White Blood Count 5.38 10^3/uL (3.29-11.43)
[2025-01-18 09:09] LABS: Erythrocyte Sedimentation Rate 11 mm/hr (0-10)
[2025-01-18 09:16] LABS: Alanine Aminotransferase 18 U/L (0-41); Albumin Level 4.1 g/dL (3.5-5.2); Alkaline Phosphatase 84 U/L (40-130); Aspartate Amino Transferase 21 U/L (0-40); Globulin 2.8 g/dL (1.3-4.6); Total Bilirubin 0.5 mg/dL (0.15-1.2); Total Protein 6.9 g/dL (6.6-8.7)
== END 2025-01-18 08:30 | disposition home or self-care (01) ==
LOC: LAB 08:30
PROVIDERS: PCP Family Medicine; Visit Provider Internal Medicine Rheumatology
DX: M06.09 Rheumatoid arthritis without rheumatoid factor, multiple sites (principal); Z79.899 Other long term (current) drug therapy
CPT/HCPCS: 36415; 80076; 82565; 85025; 85651; 86140

== ENCOUNTER → 2025-01-23 10:46 | Outpatient (BNVA) | payer MEDICARE, SELFPAY | PROVIDERS: PCP Family Medicine; Visit Provider Internal Medicine Rheumatology | DX: M06.09 Rheumatoid arthritis without rheumatoid factor, multiple sites (principal); Z79.899 Other long term (current) drug therapy; Z71.89 Other specified counseling | CPT/HCPCS: 99214 ==

== ENCOUNTER → 2025-04-19 09:03 | Outpatient (BNVA) | payer MEDICARE, SELFPAY | PROVIDERS: PCP Family Medicine; Visit Provider Podiatrist Foot & Ankle Surgery | DX: Q82.8 Other specified congenital malformations of skin (principal); I10 Essential (primary) hypertension | CPT/HCPCS: 17110; 99203 ==

== ENCOUNTER 2025-05-10 11:50 | Outpatient (CLI) | payer MEDICARE, SELFPAY ==
[2025-05-10 12:47] LABS: Hematocrit 49.3 % (37-53); Hemoglobin 16.20 g/dL (11.27-16.99); Mean Corpuscular HGB Conc 32.9 g/dL (30-55); Mean Corpuscular Hemoglobin 29.4 pg (27-33); Mean Corpuscular Volume 89.5 fl (82-101); Nucleated Red Blood Cells % 0 %; Platelet Count 243 10^3/cmm (157-399); Red Blood Count 5.51 10^6/uL (3.85-5.65); White Blood Count 7.19 10^3/uL (3.29-11.43)
[2025-05-10 13:06] LABS: Alanine Aminotransferase 17 U/L (0-41); Albumin Level 4.2 g/dL (3.5-5.2); Alkaline Phosphatase 90 U/L (40-130); Aspartate Amino Transferase 20 U/L (0-40); Globulin 3.3 g/dL (1.3-4.6); Total Protein 7.5 g/dL (6.6-8.7)
== END 2025-05-10 11:51 | disposition home or self-care (01) ==
PROVIDERS: PCP Family Medicine; Visit Provider Internal Medicine Rheumatology
DX: Z79.899 Other long term (current) drug therapy (principal)
CPT/HCPCS: 36415; 80076; 82565; 85025; 85651; 86140

== ENCOUNTER → 2025-05-30 08:48 | Outpatient (BNVA) | payer MEDICARE, SELFPAY | PROVIDERS: PCP Family Medicine; Visit Provider Podiatrist Foot & Ankle Surgery | DX: M79.672 Pain in left foot (principal); I10 Essential (primary) hypertension | CPT/HCPCS: 99213 ==

== ENCOUNTER 2025-08-04 11:21 | Outpatient (CLI) | payer MEDICARE, SELFPAY ==
[2025-08-04 12:00] LABS: Hematocrit 44.4 % (37-53); Hemoglobin 15.50 g/dL (11.27-16.99); Mean Corpuscular HGB Conc 34.9 g/dL (30-55); Mean Corpuscular Hemoglobin 29.8 pg (27-33); Mean Corpuscular Volume 85.2 fl (82-101); Nucleated Red Blood Cells % 0 %; Platelet Count 238 10^3/cmm (157-399); Red Blood Count 5.21 10^6/uL (3.85-5.65); White Blood Count 5.49 10^3/uL (3.29-11.43)
[2025-08-04 12:14] LABS: Alanine Aminotransferase 18 U/L (0-41); Albumin Level 4.3 g/dL (3.5-5.2); Alkaline Phosphatase 83 U/L (40-130); Aspartate Amino Transferase 20 U/L (0-40); Globulin 3.0 g/dL (1.3-4.6); Total Protein 7.3 g/dL (6.6-8.7)
== END 2025-08-04 11:22 | disposition home or self-care (01) ==
LOC: LAB 11:23
PROVIDERS: PCP Family Medicine; Visit Provider Internal Medicine Rheumatology
DX: Z79.899 Other long term (current) drug therapy (principal)
CPT/HCPCS: 36415; 80076; 82565; 85025; 85651; 86140